=== PATIENT | male | born 1960 | race Caucasian/White ===

== ENCOUNTER 2025-01-21 16:04 | Inpatient (IN) ==
[2025-01-21] MEDS: SODIUM CHLORIDE 0.9% 1,000 ML IV SCH ×2 (17:34→22:54)
[2025-01-21 17:51] LABS: Hematocrit (blood only) 45.4 % (42.0-52.0); Hemoglobin 15.9 g/dl (14.0-18.0); Mean Corpuscular Hemoglobin 34.4 pg (25.0-34.0); Mean Corpuscular Volume 98.3 fL (80.0-100.0); Platelet Count 283 K/uL (130-400); RDW Standard Deviation 47.2 fL (36.4-46.3); Red Blood Count 4.62 M/uL (4.70-6.10); White Blood Count 10.71 K/ul (4.8-10.8)
[2025-01-21 18:03] LABS: Appearance Urine Clear (Clear); Epithelial Cell Urine Auto 0-2 /hpf (0-2); Glucose Urine UA Negative (Negative); WBC Urine Automated 0-5 /hpf (0-5)
[2025-01-21 18:10] LABS: Immature Granulocytes # (auto) 0.10 K/uL (0.01-0.20); Immature Granulocytes % (auto) 0.9 %
[2025-01-21 18:11] LABS: Alanine Aminotransferase 41.0 U/L (7-52); Alkaline Phosphatase 100.0 U/L (34-104); Anion Gap 13.0 (3-11); Bilirubin,Total 0.7 mg/dl (0.2-1.0); Blood Urea Nitrogen 48.0 mg/dl (6-23); Calcium 9.1 mg/dl (8.6-10.3); Carbon Dioxide 14.0 mmol/L (21-32); Chloride 100.0 mmol/L (98-107); Creatinine Clr Calc Pharmacy 42.0 ml/min; Glucose 91.0 mg/dl (70-99(Fasting)); Magnesium 2.9 mg/dl (1.7-2.4); Potassium 5.9 mmol/L (3.5-5.1); Sodium 127.0 mmol/L (136-145); Total Protein 8.0 gm/dl (6.0-8.3)
[2025-01-21 18:14] LABS: Bacteria Urine Automated 1+ (None Seen)
[2025-01-21] MEDS ORDERED: VANCOMYCIN CONSULT ACTIVE PRN (18:28)
--- NOTE | 2025-01-21 18:37 | Emergency Department Note ---
Impression & Plan Complicated UTI (urinary tract infection), Failure to thrive in adult, Sepsis, Wound of foot ED Provider Note NAME: SANDHYA MCCAIN AGE: 64 SEX: M : 1960 ARRIVES VIA: Ambulance INFORMANT: Patient, ED PROVIDER(S): Quang Singh MD CHIEF COMPLAINT: Failure to thrive HPI: This is a 64-year-old male presenting for failure to thrive. Patient was found after EMS was called for a lift assist. Patient found down on the ground currently being in a broken down RV. Patient has no heat, water to this area. Reportedly EMS attempted to help the patient up however they noted maggots coming from his feet bilaterally. He is malodorous. He reports he drinks alcohol, beer. Has been a few days since he drank. States he is getting weaker over the last few days. Upon arrival here, patient has jeans on that are in his heart as would. Upon attempting to remove socks, patient's skin sloughs. ROS: See above HPI for pertinent positives & negatives. A total of 10 systems reviewed and were otherwise negative. PAST MEDICAL HISTORY: See Below PAST SURGICAL HISTORY: See Below FAMILY HISTORY: See Below SOCIAL HISTORY: See Below HOME MEDICATIONS: See Below ALLERGIES: See Below VITALS: See Below PHYSICAL EXAMINATION: General: Disheveled, malodorous, tremulous Head: Normocephalic and atraumatic Eyes: Normal inspection, extraocular muscles intact Ear, nose, throat: Normal external exam Neck: Normal range of motion Respiratory: lungs clear to auscultation bilaterally Cardiovascular: Regular rate/rhythm, no murmur GI: soft, nontender, no guarding or rebound Extremities: Severe erythema and bilateral lower extremity wounds, right great toe necrotic, left second toe necrotic Neuro: The patient awake and alert, appropriately conversive, no focal deficits, symmetric faces Skin: Warm, dry, and intact MEDICAL DECISION MAKING: This is 64-year-old male presents for failure to thrive. Patient had clothing removed, water poured over his socks to remove without injury to feet. He has significant erythema/weeping to the bilateral feet. He has a necrotic right first toe and left second toe - blood work is fairly abnormal with significant dehydration, hyponatremia, hyperkalemia, creatinine to 1.77. BUN 48. No leukocytosis no anemia noted however. -Troponin elevated 22.1 lactic acid elevated 3.4 - Patient will get fluid resuscitation and empiric vancomycin for possible sepsis -Chest Xray independently interpreted by me showing no pneumothorax, focal opacity, or pleural effusions. -X-rays of the bilateral feet ordered, no obese fractures noted or osteomyelitis - ECG independently interpreted by me with normal sinus rhythm, rate of 97, normal OR, normal QRS, normal QTc, no ST segment elevations consistent with STEMI criteria - Ordered patient appears significantly unwell, significant wounds, disheveled, and need of inpatient admission - Patient care discussed Dr. Warren for admission Differential diagnosis: Sepsis, osteomyelitis, Independent History obtained from: EMS Diagnostics interpreted by me: ECG: See above Cardiac Monitoring: An order was placed for continuous cardiac monitoring. The monitor shows a rate of 102 with sinus rhythm. Past Med/Surg History Problem List (Updated 01/21/25 @ 20:11 by Quang Singh MD) Complicated UTI (urinary tract infection) (Acute) Hyponatremia TATA (acute kidney injury) Failure to thrive in adult (Acute) Sepsis (Acute) Wound of foot (Acute) Social History Smoking Status: Current every day smoker Tobacco Type: Cigars Preferred Language: Zimbabwean Feels Safe at Home: Yes Allergies Allergies Allergy/AdvReac Type Severity Reaction Status Date / Time No Known Allergies Allergy Mild Verified 06/18/07 23:57 Home Meds Home Medications Medication Instructions Recorded Confirmed No Known Home Medications 01/21/25 01/21/25 Results & Data (ED) Vital Signs Vital Signs - 24 hr 01/21/25 16:20 01/21/25 16:21 01/21/25 16:21 Temperature 36.6 C Temperature Source Oral Pulse Rate 110 H 111 H Pulse Rate [Apical] 111 H Pulse Rate from SpO2 Sensor Respiratory Rate 22 22 Respiratory Effort / Characteristics Non-Labored Spontaneous Non-Labored Spontaneous Respiratory Depth Normal Normal Respiratory Pattern Regular Regular Blood Pressure 144/93 H Blood Pressure [Right Arm] 144/93 H Blood Pressure Mean 110 Blood Pressure Mean [Right Arm] 110 Blood Pressure Position Lying Blood Pressure Position [Right Arm] Lying Pulse Oximetry 99 99 Oxygen Delivery Method Room Air Room Air Sepsis Recent Fever Within 48 Hours No Sepsis New/Unexplained Change in Mental Status No Sepsis Action Taken by Nursing Physician Notified 01/21/25 16:33 01/21/25 16:51 01/21/25 17:00 Temperature Temperature Source Pulse Rate 103 H Pulse Rate [Apical] Pulse Rate from SpO2 Sensor 114 H Respiratory Rate 25 H 38 H Respiratory Effort / Characteristics Respiratory Depth Respiratory Pattern Blood Pressure 158/100 H Blood Pressure [Right Arm] Blood Pressure Mean 126 Blood Pressure Mean [Right Arm] Blood Pressure Position Blood Pressure Position [Right Arm] Pulse Oximetry 98 Oxygen Delivery Method Room Air Sepsis Recent Fever Within 48 Hours Sepsis New/Unexplained Change in Mental Status Sepsis Action Taken by Nursing 01/21/25 17:00 01/21/25 17:18 01/21/25 17:30 Temperature Temperature Source Pulse Rate 107 H Pulse Rate [Apical] Pulse Rate from SpO2 Sensor Respiratory Rate 41 H 33 H Respiratory Effort / Characteristics Respiratory Depth Respiratory Pattern Blood Pressure 158/100 H Blood Pressure [Right Arm] Blood Pressure Mean 126 Blood Pressure Mean [Right Arm] Blood Pressure Position Blood Pressure Position [Right Arm] Pulse Oximetry Oxygen Delivery Method Sepsis Recent Fever Within 48 Hours Sepsis New/Unexplained Change in Mental Status Sepsis Action Taken by Nursing 01/21/25 17:39 01/21/25 18:00 01/21/25 18:00 Temperature Temperature Source Pulse Rate 102 H Pulse Rate [Apical] Pulse Rate from SpO2 Sensor Respiratory Rate 26 H Respiratory Effort / Characteristics Respiratory Depth Respiratory Pattern Blood Pressure 158/101 H Blood Pressure [Right Arm] Blood Pressure Mean 131 Blood Pressure Mean [Right Arm] Blood Pressure Position Blood Pressure Position [Right Arm] Pulse Oximetry 96 Oxygen Delivery Method Room Air Room Air Sepsis Recent Fever Within 48 Hours Sepsis New/Unexplained Change in Mental Status Sepsis Action Taken by Nursing Laboratory Data 01/21/25 17:32 01/21/25 17:32 Lab Results 01/21/25 01/21/25 Range/Units 17:32 19:29 WBC 10.71 (4.8-10.8) K/ul RBC 4.62 L (4.70-6.10) M/uL Hgb 15.9 (14.0-18.0) g/dl Hct 45.4 (42.0-52.0) % MCV 98.3 (80.0-100.0) fL MCH 34.4 H (25.0-34.0) pg MCHC 35.0 (32.0-36.0) g/dL RDW Std Deviation 47.2 H (36.4-46.3) fL RDW Coeff of Elias 13.2 (11.5-14.5) % Plt Count 283 (130-400) K/uL MPV 9.4 (9.4-12.4) fL Immature Gran % (Auto) 0.9 % Neut % (Auto) 75.0 % Lymph % (Auto) 7.8 % Johnson % (Auto) 15.3 % Eos % (Auto) 0.2 % Baso % (Auto) 0.8 % Neut # (Auto) 8.02 H (1.40-6.50) K/uL Lymph # (Auto) 0.84 L (1.20-3.40) K/uL Johnson # (Auto) 1.64 H (0.11-0.59) K/uL Eos # (Auto) 0.02 (0.00-0.50) K/uL Baso # (Auto) 0.09 (0.00-0.20) K/uL Immature Gran # (Auto) 0.10 (0.01-0.20) K/uL Sodium 127 L (136-145) mmol/L Potassium 5.9 H (3.5-5.1) mmol/L Chloride 100 (98-107) mmol/L Carbon Dioxide 14 L (21-32) mmol/L Anion Gap 13 H (3-11) BUN 48 H (6-23) mg/dl Creatinine 1.77 H (0.6-1.4) mg/dl Est Cr Clr Drug Dosing 42.0 ml/min eGFR 41.84 BUN/Creatinine Ratio 27.1 H (10-20) Glucose 91 (70-99(Fasting)) mg/dl Lactate 3.4 H* 3.4 H* (0.4-2.0) mmol/L Calcium 9.1 (8.6-10.3) mg/dl Magnesium 2.9 H (1.7-2.4) mg/dl Total Bilirubin 0.7 (0.2-1.0) mg/dl Direct Bilirubin 0.1 (0-0.2) mg/dl AST 104 H (13-39) U/L ALT 41 (7-52) U/L Alkaline Phosphatase 100 (34-104) U/L Troponin I High Sens 23.1 H (0-20) pg/ml Total Protein 8.0 (6.0-8.3) gm/dl Albumin 2.8 L (3.4-5.0) gm/dl Procalcitonin 2.32 H (0-0.5) ng/ml Urine Color [place] Urine Appearance Clear (Clear) Urine pH 5.0 (4.5-7.5) Ur Specific [place] 1.024 (1.000-1.030) Urine Protein 1+ H (Negative) Urine Glucose (UA) Negative (Negative) Urine Ketones Trace H (Negative) Urine Blood 2+ H (Negative) Urine Nitrite Positive A (Negative) Urine Bilirubin 1+ H (Negative) Urine Urobilinogen Negative (Negative) Ur Leukocyte Esterase Trace H (Negative) Urine WBC (Auto) 0-5 (0-5) /hpf Urine RBC (Auto) 3-5 H (0-2) /hpf U Hyaline Cast (Auto) 11-20 H (0-2) /lpf U Epithel Cells (Auto) 0-2 (0-2) /hpf Urine Bacteria (Auto) 1+ H (None Seen) Urine Comment Administered Medications Vancomycin HCl 1,750 mg/ (Sodium Chloride) 535 mls @ 200 mls/hr IV NOW ONE Stop: 01/21/25 21:08 Last Admin: 01/21/25 19:15 Dose: 200 mls/hr Documented By: PAG Discontinued Medications Sodium Chloride (Nss) 1,000 mls @ 999 mls/hr IV .Q1H1M MATTHEW Stop: 01/21/25 18:00 Last Admin: 01/21/25 17:34 Dose: 999 mls/hr Documented By: DAXA Sodium Chloride (Nss) 1,000 mls @ 999 mls/hr IV .Q1H1M ONE Stop: 01/21/25 19:15 Last Admin: 01/21/25 18:39 Dose: 999 mls/hr Documented By: DAXA Discharge Plan Visit Data Chief Complaint: Illness Stated Complaint: WEAKNESS, DRAINAGE TO FEET ED Provider: Quang Singh Discharge Problem: Complicated UTI (urinary tract infection), Failure to thrive in adult, Sepsis, Wound of foot Patient Disposition: Admitted As Inpatient Condition: Serious Forms Stand Alone Forms: My [facility] eeGeo Prescriptions Prescriptions: No Action No Known Home Medications Referrals Referrals: PCP,NO [Primary Care Provider] -
[2025-01-21] MEDS: SODIUM CHLORIDE 0.9% 1,000 ML IV ONE (18:39)
[2025-01-21] MEDS: VANCOMYCIN HCL 1,750 MG in SODIUM CHLORIDE 0.9% 500 ML IV ONE (19:15)
--- NOTE | 2025-01-21 19:17 | History & Physical Report ---
Date of Service January 21, 2025 Assessment & Plan (1) Sepsis: (2) Wound of foot: (3) Failure to thrive in adult: (4) TATA (acute kidney injury): (5) Hyponatremia: (6) Complicated UTI (urinary tract infection): Plan 64 yo male with unknown past medical history (in these records and [facility]) presenting after being found down for a lift assist, now being admitted with sepsis from bilateral foot wounds amongst other issues. #Bilateral Foot Wounds #Maggot Infestation #Sepsis -patient has burn like bilateral foot wounds with significant maggot infestation -tachycardia, tachypnea fit SIRS criteria with a source, elevated lactic acid as well -has prior wound culture in [facility] records (1 of only a few labs/records avaliable) that grew MRSA -other sources for sepsis would complicated UTI given UA, chest xray and further workup pending -personal review of chest xray before read reveals possible RLL infiltrate with enlarged hilar lymphadenopathy Plan: -NSS maintenance fluids through morning given sepsis and dehydration, low Na likely secondary volume depletion -ortho consult, appreciate recs (consult placed) -f/u xr chest, feet bilaterally -requires full body scrub and shower in ED before admission to inpatient service -f/u blood cultures -vancomycin/zosyn for empiric coverage for now -plastic surgery consult, appreciate recs (order placed) -wound care consult, appreciate recs (order placed) -trend lactic acid #Metabolic Encephalopathy #Wernickes Encephalopathy -likely 2/2 alcohol use, malnutrition, sepsis -nystagmus, confusion on exam, tremors, unable to examine ataxia Plan: -start high dose thiamine IV and PO, folic acid IV and PO -limit anticholinergics -maintenance fluids -crook operator consult, appreciate recs -CT head w/o contrast ordered #Type 2 PR #Inferior T Wave Inversions -noted by slightly elevated HS troponin -likely 2/2 sepsis -ECG with T wave inversions in inferior leads, personally reviewed Plan: -trend troponin -echo ordered give inferior T wave inversions -check BNP #Elevated AST/ALT Ratio #Alcohol Use -suggestive of active alcohol use -patient states he has not drank alcohol in a few days Plan: -check drug and alcohol levels -AWSS monitoring for alcohol withdrawal with prn ativan, given unclear if withdrawing or not -check ethylene glycol given low bicarb -check VBG -check Hep C, HIV #TATA #Metabolic Acidosis w/ Secondary Metabolic Alkalosis -unclear if TATA or CKD or TATA on CKD -will treat as TATA for now -would assume some CKD given protein and blood on UA Plan: -check bladder ultrasound to r/o obstruction -recheck BMP s/p fluids -start PO bicarbonate given low bicarb on BMP and TATA #Hypovolemic Hyponatremia -unclear type of hyponatremia at this time -patient dry on examination, mucus membranes very dry Plan: -check serum osmoles, urine osmoles, urine sodium -continue NSS resuscitation #Hyperkalemia -slightly peaked T waves on ECG Plan: -give lokelma -fluids -recheck BMP #Housing Insecurity -concern for neglect, no running water or electricity -maggots all over body, worst on feet Plan: -will need discussion with case management -PT/OT ordered I spent a total of 90 minutes in direct patient care, including [id number] time with the patient and/or family, reviewing medical records, ordering and reviewing diagnostic tests, and coordinating care with other healthcare providers. This time includes: history taking, physical examination, medical decision making, counseling, ECG interpretation, imaging interpretation, lab interpretation, orders, and education, excluding time spent in the performance of separately billed services. History of Present Illness Chief Complaint: -found down Primary Care Provider: NO PCP 64 yo male with unknown past medical history (in these records and [facility] records) presenting after being found down for a lift assist. No admissions to the hospital at [facility] or in the [facility]. Per EMS, called for lift assist, found to have maggots crawling out of feet, brought to ED for workup. In ED, given fluids, vancomycin for abx coverage, bilateral feet were cleaned, maggots found throughout feet and legs bilaterally. Admitted to medicine for further workup. Patient seen and examined at bedside. Patient is very poor historian and only gives limited history. 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 States he drinks alcohol but denies any use the past few days. States he has no symptoms, no pain at this time. Denies nausea, vomiting, diarrhea, pain, SOB, chest pain, other symptoms. States feet have only been like this for the past week. Has no running water or electricity in his trailer. Smokes tobacco when available, drinks alcohol when available, denies drug use, full code. Allergies Allergy/AdvReac Type Severity Reaction Status Date / Time No Known Allergies Allergy Mild Verified 06/18/07 23:57 Home Medications Medication Instructions Recorded Confirmed Type No Known Home Medications 01/21/25 01/21/25 History Past Med/Surg History Problem List (Updated 01/21/25 @ 20:11 by Quang Singh MD) Complicated UTI (urinary tract infection) (Acute) Hyponatremia TATA (acute kidney injury) Failure to thrive in adult (Acute) Sepsis (Acute) Wound of foot (Acute) Social History Smoking Status: Current every day smoker Tobacco Type: Cigars Preferred Language: Sinhala Feels Safe at Home: Yes Review of Systems Review of Systems: -negative unless listed above Physical Exam Physical Exam: Gen: A&O 3, confused, NAD HEENT: NCAT, EOMI, not icteric. External ears normal. No rhinorrhea. Dry mucous membranes. nystagmus noted Neck: Supple, full range of motion, no observable masses, No meningeal sign. Lungs: No Respiratory distress. CV: tachycardic, regular rhythm, no edema. Abdomen: Soft, nondistended, No rebound tenderness. MSK: burn like injuries in bilateral lower feet, covered in maggots, cleaned off some by this provider Skin: erythema in bilateral lower feet, appear raw Neuro: bilateral tremors noted Psych: very flat Results & Data Results & Data Vital Signs (Past 12 Hours) Vital Signs Temp Pulse Pulse Resp BP BP Pulse Ox 01/21/25 18:00 158/101 H 01/21/25 18:00 102 H 26 H 96 01/21/25 17:39 01/21/25 17:30 107 H 33 H 01/21/25 17:18 41 H 01/21/25 17:00 158/100 H 01/21/25 17:00 158/100 H 01/21/25 16:51 103 H 38 H 01/21/25 16:33 25 H 98 01/21/25 16:21 111 H 22 144/93 H 99 01/21/25 16:21 36.6 C 111 H 22 144/93 H 99 01/21/25 16:20 110 H O2 Del Method 01/21/25 18:00 01/21/25 18:00 Room Air 01/21/25 17:39 Room Air 01/21/25 17:30 01/21/25 17:18 01/21/25 17:00 01/21/25 17:00 01/21/25 16:51 01/21/25 16:33 Room Air 01/21/25 16:21 Room Air 01/21/25 16:21 Room Air 01/21/25 16:20 Laboratory Results -personally reviewed, UA strongly suggestive of UTI, elevated procal Medications Administered Vancomycin HCl 1,750 mg/ (Sodium Chloride) 535 mls @ 200 mls/hr IV NOW ONE Stop: 01/21/25 21:08 Last Admin: 01/21/25 19:15 Dose: 200 mls/hr Documented By: PAG Code Status & VTE Plan VTE Prophylaxis Plan VTE Prophylaxis will be ordered: Yes
[2025-01-21] MEDS ORDERED: Ativan IV Alcohol Withdrawal--Active Protocol IV PRN (19:54)
[2025-01-21] MEDS ORDERED: Ativan PO Alcohol Withdrawal--Active Protocol PO PRN (19:54)
[2025-01-21] MEDS ORDERED: LORazepam 1 MG TAB PO PRN ×3 (19:54)
[2025-01-21] MEDS ORDERED: LORazepam 2 MG/1 ML VIAL--Active Protocol IV PRN ×3 (20:15)
--- NOTE | 2025-01-21 20:30 | XRay Report ---
EXAM: XR foot RT 2V CLINICAL HISTORY: osteomyelitis TECHNIQUE: X-ray images of the right foot were obtained in lateral projections. COMPARISON: No prior studies available for comparison. FINDINGS: Bone Structure: Bone structure is normal and aligned. No evidence of fracture or dislocation. No osseous lesions or abnormalities identified. Plantar calcaneal spur Enthesophyte noted at the site of Achilles tendon insertion Diffuse osteopenia Joint Spaces: Joint spaces are normal. No evidence of joint effusion or subluxation. Soft Tissues: Soft tissue swelling noted at the forefoot, especially around the big toe IMPRESSION: 1. Soft tissue swelling noted at the forefoot, especially around the big toe, with no lytic lesions nor signs of osteomyelitis; however, if clinically indicated, MRI is the modality of choice for the detection of early osteomyelitis 2. Plantar calcaneal spur 3. Enthesophyte noted at the site of Achilles tendon insertion 4. Diffuse osteopenia 5. No evidence of acute fracture, dislocation Disclaimer: A subtle bone abnormality or fracture may not be readily apparent on X-rays; thus, clinical correlation and further imaging, including follow-up CT, MRI, or follow-up X-rays are advised as needed. Electronically signed by Derick Yang 01-21-2025 8:29 PM
--- NOTE | 2025-01-21 20:32 | XRay Report ---
EXAM: XR foot LT 2V CLINICAL HISTORY: osteomyletitis TECHNIQUE: X-ray images of the left foot were AP and lateral projections. COMPARISON: No prior studies available for comparison. FINDINGS: Bone Structure: Bone structure is normal and aligned. No evidence of fracture or dislocation. No osseous lesions or abnormalities identified. Plantar calcaneal spur Enthesophyte noted at site of Achilles tendon insertion Diffuse osteopenia Joint Spaces: Joint spaces are normal. No evidence of joint effusion or subluxation. Soft Tissues: Soft tissue swelling noted at the forefoot with no lytic lesions nor signs of osteomyelitis, IMPRESSION: 1. Soft tissue swelling noted at the forefoot with no lytic lesions nor signs of osteomyelitis, however if clinically indicated MRI is the modality of choice for detection of early osteomyelitis. 2. Plantar calcaneal spur. 3. Enthesophyte noted at site of Achilles tendon insertion. 4. Diffuse osteopenia. 5. No evidence of acute fracture, dislocation. Disclaimer: A subtle bone abnormality or fracture may not be readily apparent on X-rays, thus clinical correlation and further imaging including follow-up CT, MRI, or follow-up X-rays are advised as needed. Electronically signed by Derick Yang 01-21-2025 8:32 PM
--- NOTE | 2025-01-21 20:36 | XRay Report ---
EXAM: XR chest 1V portable CLINICAL HISTORY: Sepsis. TECHNIQUE: An X-ray image of the chest is obtained in AP projection. COMPARISON: No prior studies are available for comparison. FINDINGS: Pulmonary Parenchyma: Lungs are clear bilaterally. No evidence of consolidation, collapse, or focal opacities. No pulmonary nodules are identified. No evidence of pleural effusion or pleural thickening. Heart and Mediastinum: Apparent cardiomegaly with mildly congested hilar vessels No mediastinal widening or masses. No hilar or mediastinal lymphadenopathy. Bony Thorax: Bony thorax appears intact without deformities. Cortical irregularity and subtle angulation noted at the left 4th rib, suggesting old fracture. Soft Tissues: Soft tissues overlying the chest wall are unremarkable. IMPRESSION: 1. No acute cardiopulmonary abnormalities are identified. 2. Apparent cardiomegaly with mildly congested hilar vessels. Electronically signed by Derick Yang 01-21-2025 8:36 PM
--- NOTE | 2025-01-21 20:39 | Pharmacy Report ---
Pharmacy PK ABX Note - Date of Service January 21, 2025 - Assessment and Plan Assessment 64 year old M with unknown PMH presenting after being found down for a lift assist, now admitted with sepsis from bilateral foot wounds. Per H&P, limited prior records for review, however one record did indicate wound culture that grew MRSA. Pertinent microbiologic data includes: 01/21/25 urine culture pending 01/21/25 BC x 2 - pending Vancomycin * Loading dose: 1750 mg IV x 1 * Maintenance dose: 1250 mg IV every 24 hours * Regimen is predicted to achieve target AUC/BRANDON of 400-600 mg/L.hr * est. steady state AUC = 572 * Timing of vanco level to be determined Pharmacy will continue to follow and will adjust dose/frequency as necessary. Thank you. Pharmacy has transitioned to AUC monitoring for vancomycin. AUC/BRANDON is the preferred PK/PD target and is associated with decreased risk of nephrotoxicity compared to traditional trough targets.
[2025-01-21] MEDS: FOLIC ACID 1 MG in SYRINGE 9.8 ML IV STA (20:48)
[2025-01-21] MEDS: THIAMINE HCL 500 MG in SODIUM CHLORIDE 0.9% 50 ML IV STA (20:49)
[2025-01-21 21:01] LABS: Base Excess VBG -11.0 mEq/L; HCO3 VBG 15 mmol/L; Oxygen Saturation VBG < 60.0 %; PCO2 VBG 35 mmHg (38-50); PO2 VBG 26 mmHg; pH VBG 7.25 (7.36-7.41)
[2025-01-21 21:27] LABS: Alanine Aminotransferase 38.0 U/L (7-52); Albumin Globulin Ratio 0.6 (0.9-2); Alkaline Phosphatase 85.0 U/L (34-104); Anion Gap 11.0 (3-11); Bilirubin,Total 0.6 mg/dl (0.2-1.0); Blood Urea Nitrogen 46.0 mg/dl (6-23); Calcium 8.3 mg/dl (8.6-10.3); Carbon Dioxide 14.0 mmol/L (21-32); Chloride 105.0 mmol/L (98-107); Creatinine Clr Calc Pharmacy 46.1 ml/min; Globulin 4.2 gm/dl (2.5-4.0); Glucose 76.0 mg/dl (70-99(Fasting)); Potassium 5.7 mmol/L (3.5-5.1); Sodium 130.0 mmol/L (136-145); Total Protein 6.7 gm/dl (6.0-8.3)
[2025-01-21] MEDS ORDERED: POLYETHYLENE (MIRALAX) 17 GM PACK PO PRN (22:16)
[2025-01-21] MEDS: HEPARIN SOD 5,000 UNIT/0.5 ML VIAL SQ SCH (22:54)
[2025-01-21] MEDS: SODIUM BICARBONATE 650 MG TAB PO SCH (22:54)
--- NOTE | 2025-01-21 23:36 | CT Scan Report ---
Exam(s): CT HEAD Without Contrast EXAM: CT Head Without Intravenous Contrast CLINICAL HISTORY: Reason for exam: altered mental status. TECHNIQUE: Axial computed tomography images of the head/brain without intravenous contrast. CTDI is 38.55 mGy and DLP is 624.41 mGy-cm. Automated exposure control was utilized for the study. A dose lowering technique was utilized adhering to the principles of ALARA. COMPARISON: Prior head CT from August 29, 2007. FINDINGS: Brain: Unremarkable. No hemorrhage. No significant white matter disease. No edema. Ventricles: Moderate ventriculomegaly. Bones/joints: Periapical abscesses of 2 maxillary teeth. Recommend dental consult. No acute fracture. Soft tissues: Unremarkable. Sinuses: Unremarkable as visualized. No acute sinusitis. Mastoid air cells: Unremarkable as visualized. No mastoid effusion. IMPRESSION: No evidence of acute intracranial pathology. Electronically signed by: Magdalena Amaya MD 01/21/25 23:35 PM
[2025-01-21] MEDS: CALCIUM GLUCONATE 1,000 MG/60 ML BAG IV STA (23:38)
[2025-01-21] MEDS: DEXTROSE 50% 50 ML SYRINGE IV STA (23:46)
[2025-01-21] MEDS: INSULIN HUMAN REGULAR PER UNIT 5 UNITS in SYRINGE 4.95 ML IV STA (23:46)
--- NOTE | 2025-01-21 23:56 | Podiatry Consultation ---
Date of Consultation January 21, 2025 Assessment & Plan (1) Wound of foot: (2) Lymphedema: (3) Cellulitis of right foot: (4) Cellulitis of left foot: (5) Gangrene of toe of right foot: (6) Gangrene of toe of left foot: Plan Bilateral lower extremity cellulitis, lymphedema, multiple superficial wounds and early gangrene to the digits. - Order placed for noninvasive vascular studies. - Bilateral foot x-rays reviewed without signs of soft tissue emphysema or radiographic findings of osteomyelitis. - Feet are evaluated and have been well cleansed in the emergency department. No maggots identified interdigitally at time of exam. - Elevate bilateral lower extremity x 1 pillow while at rest. - Once daily dressing change with Silvadene to the toes and interdigital spaces. Antifungal barrier cream to the foot and leg followed by Kerlix and lightly applied Vishal bandage to keep dressings in place. Vishal bandage should extend from the toes to the level of the proximal calf. Will likely transition to multilayer compression wraps on Friday assuming adequate perfusion identified on noninvasive vascular studies. Will continue to monitor patient's progress closely. Will typically see rapid improvement in the overall quality of the skin of the feet and distal leg with elevation, light compression and dressing changes. Necrotic tissue to the toes will need to be monitored closely and will require long-term wound care with application of Betadine and a dry sterile dressing to all eschars once the surrounding soft tissues have stabilized. Patient okay to weight-bear as needed for short distance and transfer. Continue empiric IV antibiotics as per hospitalist team. None of the wounds of the patient's foot looks a bit deep extension to the subcutaneous tissue layer, bone tendon or joint at this time. History of Present Illness Reason for Consultation: Open wounds and cellulitis of bilateral foot and ankle. Attending Physician: Oleksandr Knox MD History of Present Illness 64-year-old male with 1 week history of increased pain and swelling to the bilateral foot. Reports he called EMS for lift assist as he was unable to bear weight on his feet due to pain. Denies any injury to the bilateral foot. Reports bilateral lower extremity edema which increases throughout the day and with feet in dependent position and resolves with elevation. Reports he lives in a trailer currently by himself she is not have running water or electricity. He was found there by EMS who noted maggots to the feet and legs primarily interdigital spaces. Denies pain to the feet at baseline but he is unable to bear weight due to discomfort with pressure. Meet sepsis criteria on admission with source infection bilateral feet versus UTI. At time of our interview patient reports he is feeling much better than he did on admission and is able to speak more clearly and in full sentences without significant confusion. Allergies Allergy/AdvReac Type Severity Reaction Status Date / Time No Known Allergies Allergy Mild Verified 06/18/07 23:57 Home Medications Medication Instructions Recorded Confirmed Type No Known Home Medications 01/21/25 01/21/25 History Patient History Social History Smoking Status: Current every day smoker Tobacco Type: Cigars Preferred Language: Fijian Feels Safe at Home: Yes Review of Systems 2 Review of Systems: Denies nausea, vomiting, fever, chills. Reports pain in the bilateral foot and ankle with weightbearing and palpation. Physical Exam 2 Physical Exam: Const: No signs of acute distress present. CV: Extremities: Posterior tibial and dorsalis pedis pulses are palpable bilateral. Skin: See lower extremity exam Neuro: Sensation intact to light touch in all areas of the foot and ankle. Psych: Mood/Affect: Mood is normal. Affect is normal. Cognition: Orientation is intact to person, place and time. Focused lower extremity musculoskeletal exam: Leg: No pain with compression of the calf muscle. Significant reduction in edema to the bilateral lower extremity since the time of admission noted. Left foot: Dry flaking skin from the distal toes to the proximal one third of the leg with multiple areas of superficial skin breakdown weeping serous fluid. Erythema extends from the distal one third of the leg to the toes. Early apparent superficial tissue necrosis to the dorsal toes most notably dorsal second toe. Right foot: Slightly more erythematous than the left with dry flaking skin multiple fissures and superficial ulcerations interdigitally weeping serous fluid. Erythema extends from the distal third of the leg to the toes. Early tissue necrosis to the hallux which seems to be developing rapidly as not seen on photos obtained on admission. Results & Data Vital Signs (Past 12 Hours) Vital Signs Temp Pulse Pulse Resp BP BP Pulse Ox 01/21/25 22:21 110 H 17 98 01/21/25 21:15 107 H 25 H 100 01/21/25 20:51 131/98 96 01/21/25 20:42 85 L 01/21/25 20:39 131/98 01/21/25 19:42 23 01/21/25 19:15 120 H 26 H 01/21/25 19:03 103 H 30 H 01/21/25 18:54 103 H 30 H 01/21/25 18:15 104 H 21 01/21/25 18:00 158/101 H 01/21/25 18:00 102 H 26 H 96 01/21/25 17:39 01/21/25 17:30 107 H 33 H 01/21/25 17:18 41 H 01/21/25 17:00 158/100 H 01/21/25 17:00 158/100 H 01/21/25 16:51 103 H 38 H 01/21/25 16:33 25 H 98 01/21/25 16:21 111 H 22 144/93 H 99 01/21/25 16:21 36.6 C 111 H 22 144/93 H 99 01/21/25 16:20 110 H O2 Del Method 01/21/25 22:21 Room Air 01/21/25 21:15 01/21/25 20:51 01/21/25 20:42 01/21/25 20:39 01/21/25 19:42 01/21/25 19:15 01/21/25 19:03 01/21/25 18:54 01/21/25 18:15 01/21/25 18:00 01/21/25 18:00 Room Air 01/21/25 17:39 Room Air 01/21/25 17:30 01/21/25 17:18 01/21/25 17:00 01/21/25 17:00 01/21/25 16:51 01/21/25 16:33 Room Air 01/21/25 16:21 Room Air 01/21/25 16:21 Room Air 01/21/25 16:20 PG Care Time/CCT Total # of Minutes Spent Total Time Spent with Patient: Total time spent is greater than 50% in coordination of care (as documented) at patient's floor/unit and/or counseling patient: Coding Level of Care Code 45104 INT INP/OBS CARE 2/55MIN Diagnoses Wound of foot S91.309A Lymphedema I89.0 Cellulitis of right foot L03.115 Cellulitis of left foot L03.116 Gangrene of toe of right foot I96 Gangrene of toe of left foot I96
[2025-01-22] MEDS: PIPERACILLIN/TAZOBACTAM 4.5 GM/100 ML BAG IV ONE (00:12)
[2025-01-22] MEDS: SODIUM ZIRCONIUM CYCLOSILICATE 10 GM PACKET PO ONE (00:12)
--- NOTE | 2025-01-22 01:12 | Ultrasound Report ---
Exam(s): US RENAL EXAM: US Retroperitoneal Limited, Renal CLINICAL HISTORY: Reason for exam: TATA. TECHNIQUE: Real-time limited ultrasound of the retroperitoneum with image documentation. COMPARISON: No relevant prior studies available. FINDINGS: Right kidney: Unremarkable. No stones. No hydronephrosis. The right kidney measures 9.6 x 4.7 x 4.8 cm 113.5 ml. Left kidney: Unremarkable. No stones. No hydronephrosis. The left kidney measures 11.5 x 5.7 x 5.8 cm 199.2 ml. Bladder: The urinary bladder is normally distended with an unremarkable appearance. Ureteral jets are visible. IMPRESSION: No acute findings in the retroperitoneum. Electronically signed by: Robin Granado MD 01/22/25 01:11 AM
[2025-01-22] MEDS: PIPERACILLIN/TAZOBACTAM 4.5 GM/100 ML BAG IV SCH (06:49)
[2025-01-22 07:30] LABS: Amphetamines+Metham, Urine Neg (Neg); MDMA (Ecstacy), Urine Neg (Neg); Marijuana, Urine Neg (Neg)
--- NOTE | 2025-01-22 08:05 | Ultrasound Report ---
EXAM: US arterial duplex LE BI CLINICAL HISTORY: Gangrenous changes to bilateral toes TECHNIQUE: Static ultrasound images with Grayscale and Doppler were submitted for review. COMPARISON: None. FINDINGS: limited examination possible due to patient positioning and open wounds. Distal calf arteries and dorsalis pedis arteries are not seen due to inability of the patient to tolerate probe pressure on the wounds. The lower limb arteries show increased peak systolic velocities with monophasic waveform in all the arteries in right limb and arteries distal to superficial femoral artery in left limb. Peak systolic velocities of various arteries are as below (cm/sec). Right: Common femoral artery - 312 SFA (prox) - 142 SFA (mid) - 168 SFA (distal) - 388 Deep femoral artery - 180 Popliteal artery - 117 Posterior tibial artery (prox/mid) - 22 Peroneal artery (prox/mid)- 96 Anterior tibial artery (prox/mid) - 109 Left Common femoral artery - 187 SFA (prox) - 139 SFA (mid) - 175 SFA (distal) - 212 Deep femoral artery - 162 Popliteal artery - 95 Posterior tibial artery (prox/mid)- 187 Peroneal artery (prox/mid)- 25 Anterior tibial artery (prox/mid) - 109 IMPRESSION: 1. Increased velocity monophasic spectral waveforms in bilateral lower limb aretries without any obvious luminal obstruction in the visualised arteries. Electronically signed by Ino Jenkins 01-22-2025 08:05 AM
[2025-01-22] MEDS: THIAMINE HCL 100 MG TAB PO SCH (08:06)
[2025-01-22] MEDS: FOLIC ACID 1 MG in SYRINGE 9.8 ML IV SCH (08:06)
[2025-01-22 09:18] LABS: Hematocrit (blood only) 32.8 % (42.0-52.0); Hemoglobin 11.5 g/dl (14.0-18.0); Immature Granulocytes # (auto) 0.06 K/uL (0.01-0.20); Immature Granulocytes % (auto) 0.8 %; Mean Corpuscular Hemoglobin 34.4 pg (25.0-34.0); Mean Corpuscular Volume 98.2 fL (80.0-100.0); Platelet Count 207 K/uL (130-400); RDW Standard Deviation 46.7 fL (36.4-46.3); Red Blood Count 3.34 M/uL (4.70-6.10); Toxic Granulation 1+; White Blood Count 7.44 K/ul (4.8-10.8)
[2025-01-22 09:26] LABS: Alanine Aminotransferase 42.0 U/L (7-52); Albumin Globulin Ratio 0.7 (0.9-2); Alkaline Phosphatase 70.0 U/L (34-104); Anion Gap 7.0 (3-11); Bilirubin,Total 0.6 mg/dl (0.2-1.0); Blood Urea Nitrogen 41.0 mg/dl (6-23); Calcium 7.7 mg/dl (8.6-10.3); Carbon Dioxide 15.0 mmol/L (21-32); Chloride 103.0 mmol/L (98-107); Creatinine Clr Calc Pharmacy 54.7 ml/min; Globulin 3.2 gm/dl (2.5-4.0); Glucose 79.0 mg/dl (70-99(Fasting)); Magnesium 2.4 mg/dl (1.7-2.4); Potassium 4.6 mmol/L (3.5-5.1); Sodium 125.0 mmol/L (136-145); Total Protein 5.4 gm/dl (6.0-8.3)
[2025-01-22] MEDS ORDERED: VANCOMYCIN HCL 1,250 MG in SODIUM CHLORIDE 0.9% 250 ML IV SCH (10:00)
[2025-01-22] MEDS: VANCOMYCIN HCL 1,500 MG in SODIUM CHLORIDE 0.9% 500 ML IV SCH (10:59)
--- NOTE | 2025-01-22 12:11 | Electrocardiogram Report ---
Test Reason : Blood Pressure : */* mmHG Vent. Rate : 97 BPM Atrial Rate : 97 BPM P-R Int : 154 ms QRS Dur : 100 ms QT Int : 376 ms P-R-T Axes : -8 -6 -11 degrees QTcB Int : 477 ms Normal sinus rhythm Normal ECG When compared with ECG of 08-Oct-2005 16:21, T wave inversion more evident in Inferior leads QT has lengthened Confirmed by Robi Fisher ([id number]) on 01/22/2025 12:11:11 PM Referred By: REFERRED SELF Confirmed By: Robi Fisher
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
[2025-01-22] MEDS: SODIUM CHLORIDE 0.9% 1,000 ML IV SCH (14:30)
[2025-01-23 07:26] LABS: Hematocrit (blood only) 31.9 % (42.0-52.0); Hemoglobin 11.3 g/dl (14.0-18.0); Mean Corpuscular Hemoglobin 34.5 pg (25.0-34.0); Mean Corpuscular Volume 97.3 fL (80.0-100.0); Platelet Count 210 K/uL (130-400); RDW Standard Deviation 46.2 fL (36.4-46.3); Red Blood Count 3.28 M/uL (4.70-6.10); White Blood Count 5.35 K/ul (4.8-10.8)
[2025-01-23 07:45] LABS: Alanine Aminotransferase 65.0 U/L (7-52); Albumin Globulin Ratio 0.7 (0.9-2); Alkaline Phosphatase 87.0 U/L (34-104); Anion Gap 7.0 (3-11); Bilirubin,Total 0.6 mg/dl (0.2-1.0); Blood Urea Nitrogen 27.0 mg/dl (6-23); Calcium 7.7 mg/dl (8.6-10.3); Carbon Dioxide 19.0 mmol/L (21-32); Chloride 104.0 mmol/L (98-107); Creatinine Clr Calc Pharmacy 70.8 ml/min; Globulin 3.5 gm/dl (2.5-4.0); Glucose 112.0 mg/dl (70-99(Fasting)); Magnesium 2.2 mg/dl (1.7-2.4); Potassium 3.6 mmol/L (3.5-5.1); Sodium 130.0 mmol/L (136-145); Total Protein 5.8 gm/dl (6.0-8.3)
[2025-01-23 07:46] LABS: Immature Granulocytes # (auto) 0.08 K/uL (0.01-0.20); Immature Granulocytes % (auto) 1.5 %; Polychromasia 1+; Toxic Granulation 1+
[2025-01-23] MEDS ORDERED: POTASSIUM PHOS 3 MMOL/1 ML INFUSION IV STA (07:47)
[2025-01-23] MEDS: POTASSIUM PHOSPHATE 15 MMOL in SODIUM CHLORIDE 0.9% 250 ML IV ONE (08:45)
[2025-01-23] MEDS: SILVER SULFADIAZINE 1% CR 50 GM JAR/TUBE EXT SCH (08:46)
[2025-01-23] MEDS: POTASSIUM CHLORIDE CRTAB 20 MEQ TABCR PO STA (08:46)
--- NOTE | 2025-01-23 12:39 | Hospitalist Progress Note ---
Date of Service January 23, 2025 Assessment & Plan (1) Sepsis: Plan: 64 yo male with unknown past medical history (in these records and [facility] records) presenting after being found down for a lift assist, now being admitted with sepsis from bilateral foot wounds amongst other issues. #Bilateral Foot Wounds-has been seen thoracic medicine specialist Dr. Drummond as an outpatient for the last 2 to 3 years as per the patient. Will try to talk to Dr. Drummond on Friday, #Maggot Infestation #Sepsis Presented with burn like bilateral foot wounds with significant maggot infestation Noted to have tachycardia, tachypnea fit SIRS criteria with a source, elevated lactic acid as well Has prior wound culture in [facility] records (1 of only a few labs/records avaliable) that grew MRSA UA suggestive of infection and has been sent for culture and sensitivity and blood cultures have been taken Has been started with intravenous Zosyn and vancomycin Appreciate Ortho and thoracic medicine specialist input and recommendation Wound care has been consulted Washout of the wounds with appropriate solutions have been prescribed P as the provider is out of town lastic surgery consultation will be canceled for now as the provider is out of town Awaiting wound care nurse evaluation Clinically better and denies any significant symptoms except minimal pain Continue washout of the wounds as advised with chlorhexidine and water twice daily (2) Wound of foot: Plan: As above Appreciate thoracic medicine specialist input and recommendation (3) Failure to thrive in adult: (4) TATA (acute kidney injury): Plan: #TATA #Metabolic Acidosis w/ Secondary Metabolic Alkalosis Increasing BUN and creatinine likely secondary to dehydration Potassium was elevated at 5.7 this morning likely due to increasing creatinine Received intravenous fluid and also bicarbonate orally Kidney function has been normalized though sodium still remains low at 125 which is likely secondary to dehydration Kidney function remains stable (5) Hyponatremia: Plan: #Hypovolemic Hyponatremia -unclear type of hyponatremia at this time -patient dry on examination, mucus membranes very dry Plan: -check serum osmoles, urine osmoles, urine sodium -continue NSS resuscitation - Will monitor PRP-sodium level has gone up to 130 (6) Complicated UTI (urinary tract infection): Plan: UA suggestive of infection and culture has been sent Urine culture has been negative (7) Acute metabolic encephalopathy: Plan: #Metabolic Encephalopathy # Doubt Wernickes Encephalopathy Likely 2/2 alcohol use, malnutrition, sepsis Nystagmus, confusion on exam, tremors, unable to examine ataxia Started on thiamine and folic acid Will observe for any withdrawal symptoms Rcp consult, appreciate recs CT head w/o contrast ordered Clinically better no acute symptoms of withdrawal Plan Other significant medical condition as mentioned below: T wave inversion yes Eligibility minus #Type 2 MS #Inferior T Wave Inversions -noted by slightly elevated HS troponin -likely 2/2 sepsis -ECG with T wave inversions in inferior leads, personally reviewed No evidence of ACS Echo of the heart showed LV wall motion normal, LV systolic function normal, EF was 55 to 60%, grade 1 diastolic dysfunction and there is no significant valvular disease #Elevated AST/ALT Ratio #Alcohol Use -suggestive of active alcohol use -patient states he has not drank alcohol in a few days Plan: -check drug and alcohol levels -AWSS monitoring for alcohol withdrawal with prn ativan, given unclear if withdrawing or not -check ethylene glycol given low bicarb -check VBG -check Hep C, HIV show-hep C has been negative and HIV has been negative #Hyperkalemia -slightly peaked T waves on ECG Plan: -give lokelma -fluids -recheck BMP #Housing Insecurity -concern for neglect, no running water or electricity -maggots all over body, worst on feet Plan: -will need discussion with case management -PT/OT ordered Admission and Anticipated Discharge Date Admission Date: January 21, 2025 Subjective 01/22/2025 The patient was seen and examined in medical telemetry unit He complains today of bilateral feet pain and denies any other significant symptoms No fever and/or chills, no nausea and/or vomiting 01/23/2025 The patient was seen and examined in medical telemetry unit He has been stable and complains of minimal pain in the legs and feet No other significant symptoms and does not have any fever and/or chills Review of Systems Review of Systems: All systems reviewed and are unremarkable except as noted below Physical Exam Physical Exam: Lying in bed without any acute distress Constitutional: well developed, well nourished, + ill appearing and + obese Eyes: PERRL, conjunctivae normal, anicteric sclerae ENMT: external ear and nose normal, oropharynx normal Neck: trachea midline, no thyromegaly Respiratory: no respiratory distress Auscultation: lungs clear to auscultation bilaterally Cardiovascular: Rate/Rhythm: regular rate and regular rhythm; not tachycardic Heart Sounds: normal S1 and normal S2; no murmur Extremities: + edema ( lower part of the leg and both the feet are bandaged and the toes looking ) Gastrointestinal (Abdomen): Inspection/Auscultation: normal bowel sounds; abdomen not distended Percussion/Palpation: abdomen soft; abdomen nontender Musculoskeletal: No acute arthritis involving any of the joint. He has pain involving both the feet due to wounds with maggot Neurologic: normal touch/pain/proprioception and moves all extremities; no focal motor deficits Lymphatic: no cervical or axillary lymphadenopathy Results & Data Results & Data Vital Signs (Past 12 Hours) Vital Signs Temp Pulse Resp BP Pulse Ox O2 Del Method 01/23/25 12:10 36.5 C 81 20 133/74 96 Room Air 01/23/25 08:20 36.6 C 73 20 111/66 99 Room Air 01/23/25 03:43 36.6 C 92 H 20 132/73 97 Room Air Laboratory Results Short CBC 01/23/25 Range/Units 06:31 WBC 5.35 (4.8-10.8) K/ul Hgb 11.3 L (14.0-18.0) g/dl Hct 31.9 L (42.0-52.0) % Plt Count 210 (130-400) K/uL BMP 01/23/25 06:31 Sodium 130 L Potassium 3.6 D Chloride 104 Carbon Dioxide 19 L BUN 27 H Creatinine 1.05 D Glucose 112 H Calcium 7.7 L Liver Function 01/23/25 Range/Units 06:31 Total Bilirubin 0.6 (0.2-1.0) mg/dl AST 143 H (13-39) U/L ALT 65 H (7-52) U/L Alkaline Phosphatase 87 (34-104) U/L Albumin 2.3 L (3.4-5.0) gm/dl Medications Administered Current Inpatient Medications Acetaminophen (Acetaminophen 325 Mg Tab) 650 mg PO Q4H PRN PRN Reason: pain/fever Stop: 02/20/25 22:15 Heparin Sodium (Porcine) (Heparin Sod 5,000 Unit/0.5 Ml Vial) 5,000 units SQ Q8 MATTHEW Stop: 02/20/25 22:15 Last Admin: 01/23/25 05:57 Dose: 5,000 units Piperacillin Sod/Tazobactam Sod (Zosyn) 4.5 gm in 100 mls @ 25 mls/hr IV Q8H [facility]; Protocol Stop: 01/24/25 05:59 Last Infusion: 01/23/25 10:43 Dose: Infused Folic Acid 1 mg/ Syringe 10 mls @ 5 mls/min IV QAM [facility] Stop: 02/21/25 08:59 Last Admin: 01/23/25 08:44 Dose: 5 mls/min Vancomycin HCl 1,500 mg/ (Sodium Chloride) 530 mls @ 200 mls/hr IV Q24H [facility] Stop: 01/29/25 10:29 Last Admin: 01/23/25 12:06 Dose: 200 mls/hr Sodium Chloride (Nss) 1,000 mls @ 80 mls/hr IV .[id number] [facility] Stop: 01/24/25 03:29 Last Admin: 01/23/25 03:00 Dose: 80 mls/hr Lorazepam (Lorazepam 1 Mg Tab) 1 mg PO UD PRN; Protocol PRN Reason: EtOH Withdrawal AWSS Score 6,7 Stop: 02/20/25 19:53 Lorazepam (Lorazepam 1 Mg Tab) 3 mg PO ONCE PRN; Protocol PRN Reason: EtOH Withdrawal AWSS Score 10 & above Lorazepam (Lorazepam 1 Mg Tab) 2 mg PO UD PRN; Protocol PRN Reason: EtOH Withdrawal AWSS Score 8,9 Stop: 02/20/25 19:53 Lorazepam (Lorazepam 2 Mg/1 Ml Vial--Active Protocol) 1 mg IV UD PRN; Protocol PRN Reason: AWSS Score 6,7 Stop: 02/20/25 20:14 Lorazepam (Lorazepam 2 Mg/1 Ml Vial--Active Protocol) 2 mg IV UD PRN; Protocol PRN Reason: AWSS Score 8,9 Stop: 02/20/25 20:14 Lorazepam (Lorazepam 2 Mg/1 Ml Vial--Active Protocol) 3 mg IV ONCE PRN; Protocol PRN Reason: AWSS Score 10+ Stop: 02/20/25 20:14 Miscellaneous Information (Vancomycin Consult Active) 1 each N/A UD PRN PRN Reason: Consult Stop: 02/20/25 18:27 Ondansetron HCl (Ondansetron Inj 2 Mg/Ml 2 Ml Vial) 4 mg IV Q6H PRN PRN Reason: Nausea Stop: 02/20/25 22:15 Polyethylene Glycol (Polyethylene (Miralax) 17 Gm Pack) 17 gm PO DAILY PRN PRN Reason: Constipation Stop: 02/20/25 22:15 Silver Sulfadiazine (Silver Sulfadiazine 1% Cr 50 Gm Jar/Tube) 1 appln EXT QD@08 [facility] Stop: 02/22/25 07:59 Last Admin: 01/23/25 08:46 Dose: 1 appln Sodium Bicarbonate (Sodium Bicarbonate 650 Mg Tab) 1,300 mg PO TID [facility] Stop: 02/20/25 20:59 Last Admin: 01/23/25 10:44 Dose: 1,300 mg Thiamine HCl (Thiamine Hcl 100 Mg Tab) 100 mg PO QAM [facility] Stop: 02/21/25 08:59 Last Admin: 01/23/25 10:44 Dose: 100 mg
[2025-01-24 05:22] LABS: Hematocrit (blood only) 30.1 % (42.0-52.0); Hemoglobin 10.3 g/dl (14.0-18.0); Immature Granulocytes # (auto) 0.15 K/uL (0.01-0.20); Immature Granulocytes % (auto) 2.6 %; Mean Corpuscular Hemoglobin 33.4 pg (25.0-34.0); Mean Corpuscular Volume 97.7 fL (80.0-100.0); Platelet Count 197 K/uL (130-400); RDW Standard Deviation 46.8 fL (36.4-46.3); Red Blood Count 3.08 M/uL (4.70-6.10); White Blood Count 5.85 K/ul (4.8-10.8)
[2025-01-24 05:40] LABS: Anion Gap 6.0 (3-11); Blood Urea Nitrogen 16.0 mg/dl (6-23); Calcium 7.1 mg/dl (8.6-10.3); Carbon Dioxide 20.0 mmol/L (21-32); Chloride 107.0 mmol/L (98-107); Creatinine Clr Calc Pharmacy 76.6 ml/min; Glucose 89.0 mg/dl (70-99(Fasting)); Magnesium 1.9 mg/dl (1.7-2.4); Potassium 3.4 mmol/L (3.5-5.1); Sodium 133.0 mmol/L (136-145)
--- NOTE | 2025-01-24 08:23 | Pharmacy Report ---
Pharmacy PK ABX Note - Date of Service January 24, 2025 - Assessment and Plan Assessment 01/24: Reviewed vancomycin level, predicting subtherapeutic AUC/BRANDON likely due to improved serum creatinine, adjust regimen for better probability of goal AUC/BRANDON attainment. Continue Zosyn per Dr. Barrera. 01/21: 64 year old M with unknown PMH presenting after being found down for a lift assist, now admitted with sepsis from bilateral foot wounds. Per H&P, limited prior records for review, however one record did indicate wound culture that grew MRSA. Pertinent microbiologic data includes: 01/21/25 urine culture pending 01/21/25 BC x 2 - pending Vancomycin * Loading dose: 1750 mg IV x 1 * Maintenance dose: change to 1000 mg IV every 12 hours * Regimen is predicted to achieve target AUC/BRANDON of 400-600 mg/L.hr * est. steady state AUC = 520 * Random level ordered for 01/26/25 with AM labs Pharmacy will continue to follow and will adjust dose/frequency as necessary. Thank you. Pharmacy has transitioned to AUC monitoring for vancomycin. AUC/BRANDON is the preferred PK/PD target and is associated with decreased risk of nephrotoxicity compared to traditional trough targets.
[2025-01-24] MEDS: VANCOMYCIN HCL 1,000 MG/270 ML BAG IV SCH (10:20)
[2025-01-24] MEDS: CALCIUM GLUCONATE 1,000 MG/60 ML BAG IV STA (10:20)
[2025-01-24] MEDS: POTASSIUM CHLORIDE CRTAB 20 MEQ TABCR PO SCH (10:21)
[2025-01-24] MEDS: PIPERACILLIN/TAZOBACTAM 4.5 GM/100 ML BAG IV SCH (10:52)
--- NOTE | 2025-01-24 12:58 | Hospitalist Progress Note ---
Date of Service January 24, 2025 Assessment & Plan (1) Sepsis: Plan: 64 yo male with unknown past medical history (in these records and [facility] records) presenting after being found down for a lift assist, now being admitted with sepsis from bilateral foot wounds amongst other issues. #Bilateral Foot Wounds-has been seen child life therapist Dr. Drummond as an outpatient for the last 2 to 3 years as per the patient. Will try to talk to Dr. Drummond on Friday, #Maggot Infestation #Sepsis Presented with burn like bilateral foot wounds with significant maggot infestation Noted to have tachycardia, tachypnea fit SIRS criteria with a source, elevated lactic acid as well Has prior wound culture in [facility] records (1 of only a few labs/records avaliable) that grew MRSA UA suggestive of infection and has been sent for culture and sensitivity and blood cultures have been taken Has been started with intravenous Zosyn and vancomycin Appreciate Ortho and child life therapist input and recommendation Wound care has been consulted Washout of the wounds with appropriate solutions have been prescribed P as the provider is out of town lastic surgery consultation will be canceled for now as the provider is out of town Awaiting wound care nurse evaluation Clinically better and denies any significant symptoms except minimal pain Continue washout of the wounds as advised with chlorhexidine and water twice daily Arterial duplex was unremarkable for any significant obstruction Will continue current intravenous antibiotic and await further input from wound care and child life therapist (2) Wound of foot: Plan: As above Appreciate child life therapist input and recommendation (3) Failure to thrive in adult: (4) TATA (acute kidney injury): Plan: #TATA #Metabolic Acidosis w/ Secondary Metabolic Alkalosis Increasing BUN and creatinine likely secondary to dehydration Potassium was elevated at 5.7 this morning likely due to increasing creatinine Received intravenous fluid and also bicarbonate orally Kidney function has been normalized though sodium still remains low at 125 which is likely secondary to dehydration Kidney function remains stable-kidney function remains normal and electrolytes are unremarkable (5) Hyponatremia: Plan: #Hypovolemic Hyponatremia -unclear type of hyponatremia at this time -patient dry on examination, mucus membranes very dry Plan: -check serum osmoles, urine osmoles, urine sodium -continue NSS resuscitation - Will monitor PRP-sodium level has gone up to 130 Sodium level has gone up to 133 and electrolytes will be replaced accordingly (6) Complicated UTI (urinary tract infection): Plan: UA suggestive of infection and culture has been sent Urine culture has been negative (7) Acute metabolic encephalopathy: Plan: #Metabolic Encephalopathy # Doubt Wernickes Encephalopathy Likely 2/2 alcohol use, malnutrition, sepsis Nystagmus, confusion on exam, tremors, unable to examine ataxia Started on thiamine and folic acid Will observe for any withdrawal symptoms Franchise Sales Representative consult, appreciate recs CT head w/o contrast ordered Clinically better no acute symptoms of withdrawal Clinically much better Plan Other significant medical condition as mentioned below: T wave inversion yes Eligibility minus #Type 2 MN #Inferior T Wave Inversions -noted by slightly elevated HS troponin -likely 2/2 sepsis -ECG with T wave inversions in inferior leads, personally reviewed No evidence of ACS Echo of the heart showed LV wall motion normal, LV systolic function normal, EF was 55 to 60%, grade 1 diastolic dysfunction and there is no significant valvular disease #Elevated AST/ALT Ratio #Alcohol Use -suggestive of active alcohol use -patient states he has not drank alcohol in a few days Plan: -check drug and alcohol levels -AWSS monitoring for alcohol withdrawal with prn ativan, given unclear if withdrawing or not -check ethylene glycol given low bicarb -check VBG -check Hep C, HIV show-hep C has been negative and HIV has been negative #Hyperkalemia-corrected -slightly peaked T waves on ECG Plan: -give lokelma -fluids -recheck BMP #Housing Insecurity -concern for neglect, no running water or electricity -maggots all over body, worst on feet Plan: -will need discussion with case management -PT/OT ordered Admission and Anticipated Discharge Date Admission Date: January 21, 2025 Subjective 01/22/2025 The patient was seen and examined in medical telemetry unit He complains today of bilateral feet pain and denies any other significant symptoms No fever and/or chills, no nausea and/or vomiting 01/23/2025 The patient was seen and examined in medical telemetry unit He has been stable and complains of minimal pain in the legs and feet No other significant symptoms and does not have any fever and/or chills 01/24/2025 The patient was seen and examined in medical telemetry unit He has been much better today and looks brighter Still has some pain in his lower legs but no fever and or chills Denies any other significant symptoms Review of Systems Review of Systems: All systems reviewed and are unremarkable except as noted below Physical Exam Physical Exam: Lying in bed without any acute distress Constitutional: well developed, well nourished, + ill appearing and + obese Eyes: PERRL, conjunctivae normal, anicteric sclerae ENMT: external ear and nose normal, oropharynx normal Neck: trachea midline, no thyromegaly Respiratory: no respiratory distress Auscultation: lungs clear to auscultation bilaterally Cardiovascular: Rate/Rhythm: regular rate and regular rhythm; not tachycardic Heart Sounds: normal S1 and normal S2; no murmur Extremities: + edema ( lower part of the leg and both the feet are bandaged and the toes looking ) Gastrointestinal (Abdomen): Inspection/Auscultation: normal bowel sounds; abdomen not distended Percussion/Palpation: abdomen soft; abdomen nontender Skin: Awaiting wound care evaluation and management Neurologic: normal touch/pain/proprioception and moves all extremities; no focal motor deficits Lymphatic: no cervical or axillary lymphadenopathy Results & Data Results & Data Vital Signs (Past 12 Hours) Vital Signs Temp Pulse Resp BP Pulse Ox O2 Del Method 01/24/25 11:28 36.5 C 88 20 123/62 96 Room Air 01/24/25 07:27 36.7 C 71 16 126/55 L 98 Room Air 01/24/25 03:50 36.8 C 81 20 123/72 96 Room Air Laboratory Results Short CBC 01/24/25 Range/Units 04:14 WBC 5.85 (4.8-10.8) K/ul Hgb 10.3 L (14.0-18.0) g/dl Hct 30.1 L (42.0-52.0) % Plt Count 197 (130-400) K/uL BMP 01/24/25 04:14 Sodium 133 L Potassium 3.4 L Chloride 107 Carbon Dioxide 20 L BUN 16 Creatinine 0.97 Glucose 89 Calcium 7.1 L Medications Administered Current Inpatient Medications Acetaminophen (Acetaminophen 325 Mg Tab) 650 mg PO Q4H PRN PRN Reason: pain/fever Stop: 02/20/25 22:15 Heparin Sodium (Porcine) (Heparin Sod 5,000 Unit/0.5 Ml Vial) 5,000 units SQ Q8 MATTHEW Stop: 02/20/25 22:15 Last Admin: 01/24/25 06:22 Dose: 5,000 units Folic Acid 1 mg/ Syringe 10 mls @ 5 mls/min IV QAM [facility] Stop: 02/21/25 08:59 Last Admin: 01/24/25 10:20 Dose: 5 mls/min Vancomycin HCl (Vancomycin Hcl) 1,000 mg in 270 mls @ 200 mls/hr IV Q12H [facility] Stop: 01/31/25 07:59 Last Infusion: 01/24/25 11:50 Dose: Infused Piperacillin Sod/Tazobactam Sod (Zosyn) 4.5 gm in 100 mls @ 25 mls/hr IV Q8H [facility]; Protocol Stop: 01/31/25 08:59 Last Admin: 01/24/25 10:52 Dose: 25 mls/hr Lorazepam (Lorazepam 1 Mg Tab) 1 mg PO UD PRN; Protocol PRN Reason: EtOH Withdrawal AWSS Score 6,7 Stop: 02/20/25 19:53 Lorazepam (Lorazepam 1 Mg Tab) 3 mg PO ONCE PRN; Protocol PRN Reason: EtOH Withdrawal AWSS Score 10 & above Lorazepam (Lorazepam 1 Mg Tab) 2 mg PO UD PRN; Protocol PRN Reason: EtOH Withdrawal AWSS Score 8,9 Stop: 02/20/25 19:53 Lorazepam (Lorazepam 2 Mg/1 Ml Vial--Active Protocol) 1 mg IV UD PRN; Protocol PRN Reason: AWSS Score 6,7 Stop: 02/20/25 20:14 Lorazepam (Lorazepam 2 Mg/1 Ml Vial--Active Protocol) 2 mg IV UD PRN; Protocol PRN Reason: AWSS Score 8,9 Stop: 02/20/25 20:14 Lorazepam (Lorazepam 2 Mg/1 Ml Vial--Active Protocol) 3 mg IV ONCE PRN; Protocol PRN Reason: AWSS Score 10+ Stop: 02/20/25 20:14 Miscellaneous Information (Vancomycin Consult Active) 1 each N/A UD PRN PRN Reason: Consult Stop: 02/20/25 18:27 Ondansetron HCl (Ondansetron Inj 2 Mg/Ml 2 Ml Vial) 4 mg IV Q6H PRN PRN Reason: Nausea Stop: 02/20/25 22:15 Polyethylene Glycol (Polyethylene (Miralax) 17 Gm Pack) 17 gm PO DAILY PRN PRN Reason: Constipation Stop: 02/20/25 22:15 Potassium Chloride (Potassium Chloride Crtab 20 Meq Tabcr) 20 meq PO BID MATTHEW Stop: 02/23/25 08:59 Last Admin: 01/24/25 10:21 Dose: 20 meq Silver Sulfadiazine (Silver Sulfadiazine 1% Cr 50 Gm Jar/Tube) 1 appln EXT QD@08 [facility]W Stop: 02/22/25 07:59 Last Admin: 01/23/25 08:46 Dose: 1 appln Sodium Bicarbonate (Sodium Bicarbonate 650 Mg Tab) 1,300 mg PO TID [facility]THEW Stop: 02/20/25 20:59 Last Admin: 01/24/25 10:21 Dose: 1,300 mg Thiamine HCl (Thiamine Hcl 100 Mg Tab) 100 mg PO QAM [facility]W Stop: 02/21/25 08:59 Last Admin: 01/24/25 10:21 Dose: 100 mg
[2025-01-24] MEDS: ACETAMINOPHEN 325 MG TAB PO PRN (14:17)
[2025-01-24] MEDS: ONDANSETRON INJ 2 MG/ML 2 ML VIAL IV PRN (14:17)
--- NOTE | 2025-01-24 21:57 | Podiatry Progress Note ---
Date of Service January 24, 2025 Assessment & Plan (1) Gangrene of toe of left foot: (2) Gangrene of toe of right foot: (3) Cellulitis of left foot: (4) Cellulitis of right foot: (5) Lymphedema: Plan Bilateral lower extremity cellulitis, lymphedema, multiple superficial wounds and early gangrene to the digits. - Arterial ultrasound reviewed:1. Increased velocity monophasic spectral waveforms in bilateral lower limb arteries without any obvious luminal obstruction in the visualised arteries. - Bilateral foot x-rays reviewed without signs of soft tissue emphysema or radiographic findings of osteomyelitis. - Feet are evaluated. One remaining stray maggot is found remaining to the left foot. Overall patient's feet have shown significant improvement over the past 3 days with decreased erythema and edema. New growth of epithelial tissue to superficial wounds to the anterior ankle dorsal foot and toes. Decreased drainage. Decreased odor. Areas of eschar formation to the dorsal aspect of the left second toe and the dorsal medial aspect of the right hallux have begin to contract indicating they may be more superficial in nature. Will have to continue to monitor these areas closely and as the remainder of the foot continues to heal we will likely transition to a Betadine wet-to-dry in the near future to help dry these areas out. - Elevate bilateral lower extremity x 1 pillow while at rest. - Once daily dressing change with Silvadene to the toes and interdigital spaces. Antifungal barrier cream to the foot and leg followed by Donte and lightly applied Vishal bandage to keep dressings in place. Vishal bandage should extend from the toes to the level of the proximal calf. Will continue to monitor patient's progress closely. -Patient okay to weight-bear as needed for short distance and transfer. -Continue empiric IV antibiotics as per hospitalist team. Admission and Anticipated Discharge Date Admission Date: January 21, 2025 Subjective Patient seen resting comfortably in hospital bed. His dressings have recently been changed and he is hesitant to allow me to evaluate the feet as it is quite uncomfortable change dressings. With the assistance of his nurse we are able to remove dressings and evaluate the feet. Continued wound care elevation compression and antibiotics are required. That said patient's feet have made a significant improvement over the past 72 hours. Review of Systems Review of Systems: Denies nausea, vomiting, fever, chills. Reports pain in the bilateral foot and ankle with weightbearing and palpation. Physical Exam Physical Exam: Const: No signs of acute distress present. CV: Extremities: Posterior tibial and dorsalis pedis pulses are palpable bilateral. Skin: See lower extremity exam Neuro: Sensation intact to light touch in all areas of the foot and ankle. Psych: Mood/Affect: Mood is normal. Affect is normal. Cognition: Orientation is intact to person, place and time. Focused lower extremity musculoskeletal exam: Leg: No pain with compression of the calf muscle. Significant reduction in edema to the bilateral lower extremity since the time of admission noted. Left foot: Dry flaking skin from the distal toes to the proximal one third of the leg with multiple areas of superficial skin breakdown weeping serous fluid. Erythema extends from the distal one third of the leg to the toes. Early apparent superficial tissue necrosis to the dorsal toes most notably dorsal second toe. Right foot: Slightly more erythematous than the left with dry flaking skin multiple fissures and superficial ulcerations interdigitally weeping serous fluid. Erythema extends from the distal third of the leg to the toes. Early tissue necrosis to the hallux which seems to be developing rapidly as not seen on photos obtained on admission. Results & Data Results & Data Vital Signs (Past 12 Hours) Vital Signs Temp Pulse Pulse Pulse Resp BP BP 01/24/25 19:48 01/24/25 19:29 36.6 C 83 18 116/65 01/24/25 16:04 88 01/24/25 16:00 96 H 01/24/25 15:49 36.5 C 81 16 120/66 01/24/25 15:02 01/24/25 11:28 36.5 C 88 20 123/62 Pulse Ox O2 Del Method 01/24/25 19:48 Room Air 01/24/25 19:29 96 Room Air 01/24/25 16:04 01/24/25 16:00 01/24/25 15:49 95 Room Air 01/24/25 15:02 Room Air 01/24/25 11:28 96 Room Air Coding Level of Care Code 41628 SUB INP/OBS CARE 2/35MIN Diagnoses Gangrene of toe of left foot I96 Gangrene of toe of right foot I96 Cellulitis of left foot L03.116 Cellulitis of right foot L03.115 Lymphedema I89.0
[2025-01-25 08:10] LABS: Anion Gap 4.0 (3-11); Blood Urea Nitrogen 9.0 mg/dl (6-23); Calcium 7.4 mg/dl (8.6-10.3); Carbon Dioxide 25.0 mmol/L (21-32); Chloride 105.0 mmol/L (98-107); Creatinine Clr Calc Pharmacy 91.1 ml/min; Glucose 92.0 mg/dl (70-99(Fasting)); Magnesium 1.8 mg/dl (1.7-2.4); Potassium 3.6 mmol/L (3.5-5.1); Sodium 134.0 mmol/L (136-145)
--- NOTE | 2025-01-25 15:56 | Hospitalist Progress Note ---
Date of Service January 25, 2025 Assessment & Plan (1) Sepsis: Plan: 64 yo male with unknown past medical history (in these records and [facility] records) presenting after being found down for a lift assist, now being admitted with sepsis from bilateral foot wounds amongst other issues. #Bilateral Foot Wounds-has been seen teacher vocal Dr. Drummond as an outpatient for the last 2 to 3 years as per the patient. Will try to talk to Dr. Drummond on Friday, #Maggot Infestation #Sepsis Presented with burn like bilateral foot wounds with significant maggot infestation Noted to have tachycardia, tachypnea fit SIRS criteria with a source, elevated lactic acid as well Has prior wound culture in [facility] records (1 of only a few labs/records avaliable) that grew MRSA UA suggestive of infection and has been sent for culture and sensitivity and blood cultures have been taken Has been started with intravenous Zosyn and vancomycin Appreciate Ortho and teacher vocal input and recommendation Wound care has been consulted Washout of the wounds with appropriate solutions have been prescribed P as the provider is out of town lastic surgery consultation will be canceled for now as the provider is out of town Awaiting wound care nurse evaluation Clinically better and denies any significant symptoms except minimal pain Continue washout of the wounds as advised with chlorhexidine and water twice daily Arterial duplex was unremarkable for any significant obstruction Will continue current intravenous antibiotic and await further input from wound care and teacher vocal As per the teacher vocal bilateral foot and leg wounds are much betterawaiting pictures to be taken by the wound care nurse Will continue with current intravenous antibiotic with the plan to put on oral down the line on further improvement He has been feeling a lot better and has been accepted to [facility] waiting for further improvement before he can go there Blood cultures have been negative (2) Wound of foot: Plan: As above-bilateral foot x-rays did not show any soft tissue emphysema or radiographic evidence of osteomyelitis. If suspicion persist with further improvement an MRI can be done to exclude osteomyelitis Appreciate teacher vocal input and recommendation (3) Failure to thrive in adult: (4) TATA (acute kidney injury): Plan: #TATA #Metabolic Acidosis w/ Secondary Metabolic Alkalosis Increasing BUN and creatinine likely secondary to dehydration Potassium was elevated at 5.7 this morning likely due to increasing creatinine Received intravenous fluid and also bicarbonate orally Kidney function has been normalized though sodium still remains low at 125 which is likely secondary to dehydration Kidney function remains stable-kidney function remains normal and electrolytes are unremarkable Advised to drink more fluid (5) Hyponatremia: Plan: #Hypovolemic Hyponatremia -unclear type of hyponatremia at this time -patient dry on examination, mucus membranes very dry Plan: -check serum osmoles, urine osmoles, urine sodium -continue NSS resuscitation - Will monitor PRP-sodium level has gone up to 130 Sodium level has gone up to 133 and electrolytes will be replaced accordingly Sodium level has been almost normalized (6) Complicated UTI (urinary tract infection): Plan: UA suggestive of infection and culture has been sent Urine culture has been negative (7) Acute metabolic encephalopathy: Plan: #Metabolic Encephalopathy # Doubt Wernickes Encephalopathy Likely 2/2 alcohol use, malnutrition, sepsis Nystagmus, confusion on exam, tremors, unable to examine ataxia Started on thiamine and folic acid Will observe for any withdrawal symptoms Miner consult, appreciate recs CT head w/o contrast ordered Clinically better no acute symptoms of withdrawal Clinically much better Plan Other significant medical condition as mentioned below: T wave inversion yes Eligibility minus #Type 2 [place] #Inferior T Wave Inversions -noted by slightly elevated HS troponin -likely 2/2 sepsis -ECG with T wave inversions in inferior leads, personally reviewed No evidence of ACS Echo of the heart showed LV wall motion normal, LV systolic function normal, EF was 55 to 60%, grade 1 diastolic dysfunction and there is no significant valvular disease #Elevated AST/ALT Ratio #Alcohol Use -suggestive of active alcohol use -patient states he has not drank alcohol in a few days Plan: -check drug and alcohol levels -AWSS monitoring for alcohol withdrawal with prn ativan, given unclear if withdrawing or not -check ethylene glycol given low bicarb -check VBG -check Hep C, HIV show-hep C has been negative and HIV has been negative #Hyperkalemia-corrected -slightly peaked T waves on ECG Plan: -give lokelma -fluids -recheck BMP #Housing Insecurity -concern for neglect, no running water or electricity -maggots all over body, worst on feet Plan: -will need discussion with case management -PT/OT ordered-recommended rehab Admission and Anticipated Discharge Date Admission Date: January 21, 2025 Subjective 01/22/2025 The patient was seen and examined in medical telemetry unit He complains today of bilateral feet pain and denies any other significant symptoms No fever and/or chills, no nausea and/or vomiting 01/23/2025 The patient was seen and examined in medical telemetry unit He has been stable and complains of minimal pain in the legs and feet No other significant symptoms and does not have any fever and/or chills 01/24/2025 The patient was seen and examined in medical telemetry unit He has been much better today and looks brighter Still has some pain in his lower legs but no fever and or chills Denies any other significant symptoms 01/25/2025 The patient was seen and examined in medical telemetry unit He has been much better and denies any significant symptoms Still has pain in the feet but much improved No fever and chills Review of Systems Review of Systems: All systems reviewed and are unremarkable except as noted below Physical Exam Physical Exam: Lying in bed without any acute distress Constitutional: well developed, well nourished, + ill appearing and + obese Eyes: PERRL, conjunctivae normal, anicteric sclerae ENMT: external ear and nose normal, oropharynx normal Neck: trachea midline, no thyromegaly Respiratory: no respiratory distress Auscultation: lungs clear to auscultation bilaterally Cardiovascular: Rate/Rhythm: regular rate and regular rhythm; not tachycardic Heart Sounds: normal S1 and normal S2; no murmur Extremities: + edema ( lower part of the leg and both the feet are bandaged and the toes looking ) Gastrointestinal (Abdomen): Inspection/Auscultation: normal bowel sounds; abdomen not distended Percussion/Palpation: abdomen soft; abdomen nontender Musculoskeletal: Pain in the feet with movement of the lower extremities Neurologic: normal touch/pain/proprioception and moves all extremities; no focal motor deficits Lymphatic: no cervical or axillary lymphadenopathy Results & Data Results & Data Vital Signs (Past 12 Hours) Vital Signs Temp Pulse Pulse Resp BP Pulse Ox O2 Del Method 01/25/25 15:42 36.7 C 80 18 113/58 L 94 Room Air 01/25/25 13:57 89 01/25/25 08:00 Room Air 01/25/25 07:34 36.8 C 71 18 110/56 L 100 Room Air 01/25/25 07:25 82 Laboratory Results [facility] 01/25/25 06:41 Sodium 134 L Potassium 3.6 Chloride 105 Carbon Dioxide 25 BUN 9 Creatinine 0.82 Glucose 92 Calcium 7.4 L Medications Administered Current Inpatient Medications Acetaminophen (Acetaminophen 325 Mg Tab) 650 mg PO Q4H PRN PRN Reason: pain/fever Stop: 02/20/25 22:15 Last Admin: 01/24/25 14:17 Dose: 650 mg Heparin Sodium (Porcine) (Heparin Sod 5,000 Unit/0.5 Ml Vial) 5,000 units SQ Q8 [facility] Stop: 02/20/25 22:15 Last Admin: 01/25/25 14:52 Dose: 5,000 units Folic Acid 1 mg/ Syringe 10 mls @ 5 mls/min IV QAM [facility] Stop: 02/21/25 08:59 Last Admin: 01/25/25 08:00 Dose: 5 mls/min Vancomycin HCl (Vancomycin Hcl) 1,000 mg in 270 mls @ 200 mls/hr IV Q12H [facility] Stop: 01/31/25 07:59 Last Infusion: 01/25/25 12:46 Dose: Infused Piperacillin Sod/Tazobactam Sod (Zosyn) 4.5 gm in 100 mls @ 25 mls/hr IV Q8H [facility]; Protocol Stop: 01/31/25 08:59 Last Infusion: 01/25/25 12:46 Dose: Infused Lorazepam (Lorazepam 1 Mg Tab) 1 mg PO UD PRN; Protocol PRN Reason: EtOH Withdrawal AWSS Score 6,7 Stop: 02/20/25 19:53 Lorazepam (Lorazepam 1 Mg Tab) 3 mg PO ONCE PRN; Protocol PRN Reason: EtOH Withdrawal AWSS Score 10 & above Lorazepam (Lorazepam 1 Mg Tab) 2 mg PO UD PRN; Protocol PRN Reason: EtOH Withdrawal AWSS Score 8,9 Stop: 02/20/25 19:53 Lorazepam (Lorazepam 2 Mg/1 Ml Vial--Active Protocol) 1 mg IV UD PRN; Protocol PRN Reason: AWSS Score 6,7 Stop: 02/20/25 20:14 Lorazepam (Lorazepam 2 Mg/1 Ml Vial--Active Protocol) 2 mg IV UD PRN; Protocol PRN Reason: AWSS Score 8,9 Stop: 02/20/25 20:14 Lorazepam (Lorazepam 2 Mg/1 Ml Vial--Active Protocol) 3 mg IV ONCE PRN; Protocol PRN Reason: AWSS Score 10+ Stop: 02/20/25 20:14 Miscellaneous Information (Vancomycin Consult Active) 1 each N/A UD PRN PRN Reason: Consult Stop: 02/20/25 18:27 Ondansetron HCl (Ondansetron Inj 2 Mg/Ml 2 Ml Vial) 4 mg IV Q6H PRN PRN Reason: Nausea Stop: 02/20/25 22:15 Last Admin: 01/25/25 14:48 Dose: 4 mg Polyethylene Glycol (Polyethylene (Miralax) 17 Gm Pack) 17 gm PO DAILY PRN PRN Reason: Constipation Stop: 02/20/25 22:15 Potassium Chloride (Potassium Chloride Crtab 20 Meq Tabcr) 20 meq PO BID [facility] Stop: 02/23/25 08:59 Last Admin: 01/25/25 08:00 Dose: 20 meq Silver Sulfadiazine (Silver Sulfadiazine 1% Cr 50 Gm Jar/Tube) 1 appln EXT QD@08 [facility] Stop: 02/22/25 07:59 Last Admin: 01/24/25 15:49 Dose: 1 appln Sodium Bicarbonate (Sodium Bicarbonate 650 Mg Tab) 1,300 mg PO TID [facility] Stop: 02/20/25 20:59 Last Admin: 01/25/25 14:55 Dose: 1,300 mg Thiamine HCl (Thiamine Hcl 100 Mg Tab) 100 mg PO QAM [facility] Stop: 02/21/25 08:59 Last Admin: 01/25/25 08:00 Dose: 100 mg
[2025-01-26] MEDS: MELATONIN 3 MG TAB PO PRN (01:03)
[2025-01-26 04:09] LABS: Creatinine Clr Calc Pharmacy 83.0 ml/min
--- NOTE | 2025-01-26 08:24 | Pharmacy Report ---
Pharmacy PK ABX Note - Date of Service January 26, 2025 - Assessment and Plan Assessment 01/26: Reviewed vancomycin level, predicting therapeutic AUC/BRANDON, continue current vancomycin regimen. 01/24: Reviewed vancomycin level, predicting subtherapeutic AUC/BRANDON likely due to improved serum creatinine, adjust regimen for better probability of goal AUC/BRANDON attainment. Continue Zosyn per Dr. Barrera. 01/21: 64 year old M with unknown PMH presenting after being found down for a lift assist, now admitted with sepsis from bilateral foot wounds. Per H&P, limited prior records for review, however one record did indicate wound culture that grew MRSA. Pertinent microbiologic data includes: 01/21/25 urine culture pending 01/21/25 BC x 2 - pending Vancomycin * Current regimen: 1000 mg IV every 12 hours * Random level obtained 01/26/25 resulted as 13.2 mcg/mL. This is predicted to achieve target AUC/BRANDON of 400-600 mg/L.hr * Predicted AUC at steady state: 431 mg/L.hr * Continue 1000 mg IV every 12 hours * Will repeat level in the next 48-72 hours if therapy is continued and/or change in patient clinical status Pharmacy will continue to follow and will adjust dose/frequency as necessary. Thank you. Pharmacy has transitioned to AUC monitoring for vancomycin. AUC/BRANDON is the preferred PK/PD target and is associated with decreased risk of nephrotoxicity compared to traditional trough targets.
[2025-01-26] MEDS: VANCOMYCIN LEVEL ONE (08:47)
--- NOTE | 2025-01-26 16:51 | Podiatry Progress Note ---
Date of Service January 26, 2025 Assessment & Plan (1) Gangrene of toe of left foot: (2) Gangrene of toe of right foot: (3) Cellulitis of left foot: (4) Cellulitis of right foot: (5) Lymphedema: Plan Bilateral lower extremity cellulitis with multiple superficial wounds and early gangrene to the digits. - Arterial ultrasound reviewed:1. Increased velocity monophasic spectral waveforms in bilateral lower limb arteries without any obvious luminal obstruction in the visualised arteries. - Bilateral foot x-rays reviewed without signs of soft tissue emphysema or radiographic findings of osteomyelitis. - Feet are evaluated. relatively speaking feet have shown significant improvement over the past 5 days. Eschar to the dorsal aspect of the left second toe and dorsal medial aspect of the right hallux appear to be sienna without signs of deep extension. Superficial breakdown in skin to the bilateral foot which is primarily focused at the forefoot and interdigital spaces is starting to epithelialize with decreased serous drainage. Decreased erythema and edema to the feet. - Elevate bilateral lower extremity x 1 pillow while at rest. - Continue once daily dressing change with Silvadene to the toes and interdigital spaces. Antifungal barrier cream to the foot and leg followed by Donte and lightly applied Vishal bandage to keep dressings in place. Vishal bandage should extend from the toes to the level of the proximal calf. Will continue to monitor patient's progress closely. -Patient okay to weight-bear as needed for short distance and transfer. -Continue empiric IV antibiotics as per hospitalist team. Admission and Anticipated Discharge Date Admission Date: January 21, 2025 Subjective Patient seen resting comfortably in hospital bed. Reports decreased pain to the bilateral lower extremity at baseline however continues to have significant pain with dressing changes. Review of Systems Review of Systems: Denies nausea, vomiting, fever, chills. Reports pain in the bilateral foot and ankle with weightbearing and palpation. Physical Exam Physical Exam: Const: No signs of acute distress present. CV: Extremities: Posterior tibial and dorsalis pedis pulses are palpable bilateral. Skin: See lower extremity exam Neuro: Sensation intact to light touch in all areas of the foot and ankle. Psych: Mood/Affect: Mood is normal. Affect is normal. Cognition: Orientation is intact to person, place and time. Focused lower extremity musculoskeletal exam: Leg: No pain with compression of the calf muscle. Significant reduction in edema to the bilateral lower extremity since the time of admission noted. Left foot: Dry flaking skin from the distal toes to the proximal one third of the leg. New epithelial tissue formation over significant portion of the left foot with persistent superficial open wounds to the digital interspaces and forefoot dorsally as well as the anterior ankle. Eschar to the dorsal aspect of the left second toe appears to be relatively superficial and is sienna circumferentially with granular tissue to the borders. Decreased erythema to the left foot. Right foot: Eschar to the dorsal medial aspect of the right hallux has decreased in dimensions slightly and appears to be relatively superficial at this point without fluctuation or underlying drainage. Rapid contracture of the eschar and elevating borders suggest relatively superficial necrosis of skin without evidence of deep extension to the necrotic tissue. Increased epithelial tissue to the dorsum of the foot with resolving wounds throughout. Persistent superficial breakdown in skin to the interdigital spaces with persistent weeping serous fluid. Decreased erythema and edema to the foot. Results & Data Results & Data Vital Signs (Past 12 Hours) Vital Signs Temp Pulse Pulse Resp BP Pulse Ox O2 Del Method 01/26/25 15:52 36.8 C 70 18 117/66 96 Room Air 01/26/25 15:18 78 01/26/25 11:36 36.7 C 53 L 18 106/51 L 96 Room Air 01/26/25 08:00 Room Air 01/26/25 07:51 80 01/26/25 07:36 36.8 C 73 18 105/55 L 94 Room Air Coding Level of Care Code 85189 SUB INP/OBS CARE 07/17MIN Diagnoses Gangrene of toe of left foot I96 Gangrene of toe of right foot I96 Cellulitis of left foot L03.116 Cellulitis of right foot L03.115 Lymphedema I89.0
--- NOTE | 2025-01-26 17:33 | Hospitalist Progress Note ---
Date of Service January 26, 2025 Assessment & Plan (1) Sepsis: Plan: per admitting service notes with addendum: 64 yo male with unknown past medical history (in these records and [facility] records) presenting after being found down for a lift assist, now being admitted with sepsis from bilateral foot wounds amongst other issues. #Bilateral Foot Wounds-has been seen produce team member Dr. Drummond as an outpatient for the last 2 to 3 years as per the patient. Will try to talk to Dr. Drummond on Friday, #Maggot Infestation #Sepsis Presented with burn like bilateral foot wounds with significant maggot infestation Noted to have tachycardia, tachypnea fit SIRS criteria with a source, elevated lactic acid as well Has prior wound culture in [facility] records (1 of only a few labs/records avaliable) that grew MRSA UA suggestive of infection and has been sent for culture and sensitivity and blood cultures have been taken Has been started with intravenous Zosyn and vancomycin Appreciate Ortho and produce team member input and recommendation Wound care has been consulted Washout of the wounds with appropriate solutions have been prescribed P as the provider is out of town lastic surgery consultation will be canceled for now as the provider is out of town Awaiting wound care nurse evaluation Clinically better and denies any significant symptoms except minimal pain Continue washout of the wounds as advised with chlorhexidine and water twice daily Arterial duplex was unremarkable for any significant obstruction Will continue current intravenous antibiotic and await further input from wound care and produce team member As per the produce team member bilateral foot and leg wounds are much betterawaiting pictures to be taken by the wound care nurse Will continue with current intravenous antibiotic with the plan to put on oral down the line on further improvement He has been feeling a lot better and has been accepted to [facility] waiting for further improvement before he can go there Blood cultures have been negative 01/26 on Vanco + Zosyn ID consulted continues daily wound care Podiatry service on board (2) Wound of foot: Plan: As above-bilateral foot x-rays did not show any soft tissue emphysema or radiographic evidence of osteomyelitis. If suspicion persist with further improvement an MRI can be done to exclude osteomyelitis Appreciate produce team member input and recommendation (3) Failure to thrive in adult: (4) TATA (acute kidney injury): Plan: #TATA #Metabolic Acidosis w/ Secondary Metabolic Alkalosis Increasing BUN and creatinine likely secondary to dehydration Potassium was elevated at 5.7 this morning likely due to increasing creatinine Received intravenous fluid and also bicarbonate orally Kidney function has been normalized though sodium still remains low at 125 which is likely secondary to dehydration Kidney function remains stable-kidney function remains normal and electrolytes are unremarkable Advised to drink more fluid crea stable (5) Hyponatremia: Plan: #Hypovolemic Hyponatremia -unclear type of hyponatremia at this time -patient dry on examination, mucus membranes very dry Plan: -check serum osmoles, urine osmoles, urine sodium -continue NSS resuscitation - Will monitor PRP-sodium level has gone up to 130 Sodium level has gone up to 133 and electrolytes will be replaced accordingly Sodium level has been almost normalized repeat Na tomorrow (6) Complicated UTI (urinary tract infection): Plan: UA suggestive of infection and culture has been sent Urine culture has been negative (7) Acute metabolic encephalopathy: Plan: #Metabolic Encephalopathy # Doubt Wernickes Encephalopathy Likely 2/2 alcohol use, malnutrition, sepsis Nystagmus, confusion on exam, tremors, unable to examine ataxia Started on thiamine and folic acid Will observe for any withdrawal symptoms High Density Finishing Operator consult, appreciate recs CT head w/o contrast ordered Clinically better no acute symptoms of withdrawal Clinically much better Plan Other significant medical condition as mentioned below: T wave inversion yes Eligibility minus #Type 2 [place] #Inferior T Wave Inversions -noted by slightly elevated HS troponin -likely 2/2 sepsis -ECG with T wave inversions in inferior leads, personally reviewed No evidence of ACS Echo of the heart showed LV wall motion normal, LV systolic function normal, EF was 55 to 60%, grade 1 diastolic dysfunction and there is no significant valvular disease #Elevated AST/ALT Ratio #Alcohol Use -suggestive of active alcohol use -patient states he has not drank alcohol in a few days Plan: -check drug and alcohol levels -AWSS monitoring for alcohol withdrawal with prn ativan, given unclear if withdrawing or not -check ethylene glycol given low bicarb -check VBG -check Hep C, HIV show-hep C has been negative and HIV has been negative 01/26 repeat liver panel #Hyperkalemia-corrected -slightly peaked T waves on ECG Plan: -give lokelma -fluids -recheck BMP #Housing Insecurity -concern for neglect, no running water or electricity -maggots all over body, worst on feet Plan: -will need discussion with case management -PT/OT ordered-recommended rehab Admission and Anticipated Discharge Date Admission Date: January 21, 2025 Subjective ff up for BL feet wound infection, etc seen resting in bed, comfortable states he feels ok overall has some pain on the BL feet, adequately controlled no other symptoms Review of Systems Review of Systems: all noted and negative except for above Physical Exam Physical Exam: General- oriented x 3, not in distress, speaks in sentences with no effort or accessory muscle use Eyes- anicteric Neck- no JVD Lungs- clear breath sounds bilaterally, no rales/wheezes Heart- normal rate, regular rhythm; no murmurs Abdomen- normal bowel sounds, nondistended, soft, nontender Extremities- no pretibial edema, no calf tenderness BL feet: (+) wounds, seems to be drying up no active discharge Neuro- alert, oriented x 3; no gross focal neurologic deficits Skin- warm & dry Results & Data Results & Data Vital Signs (Past 12 Hours) Vital Signs Temp Pulse Pulse Resp BP Pulse Ox O2 Del Method 01/26/25 15:52 36.8 C 70 18 117/66 96 Room Air 01/26/25 15:18 78 01/26/25 11:36 36.7 C 53 L 18 106/51 L 96 Room Air 01/26/25 08:00 Room Air 01/26/25 07:51 80 01/26/25 07:36 36.8 C 73 18 105/55 L 94 Room Air all noted and reviewed including below
[2025-01-27 04:54] LABS: Hematocrit (blood only) 28.8 % (42.0-52.0); Hemoglobin 9.9 g/dl (14.0-18.0); Immature Granulocytes # (auto) 0.30 K/uL (0.01-0.20); Immature Granulocytes % (auto) 4.1 %; Mean Corpuscular Hemoglobin 34.0 pg (25.0-34.0); Mean Corpuscular Volume 99.0 fL (80.0-100.0); Platelet Count 211 K/uL (130-400); RDW Standard Deviation 47.4 fL (36.4-46.3); Red Blood Count 2.91 M/uL (4.70-6.10); White Blood Count 7.26 K/ul (4.8-10.8)
[2025-01-27 05:08] LABS: Alanine Aminotransferase 35.0 U/L (7-52); Alkaline Phosphatase 81.0 U/L (34-104); Anion Gap 5.0 (3-11); Bilirubin,Total 0.3 mg/dl (0.2-1.0); Blood Urea Nitrogen 10.0 mg/dl (6-23); Calcium 7.4 mg/dl (8.6-10.3); Carbon Dioxide 25.0 mmol/L (21-32); Chloride 104.0 mmol/L (98-107); Creatinine Clr Calc Pharmacy 96.9 ml/min; Glucose 127.0 mg/dl (70-99(Fasting)); Potassium 3.8 mmol/L (3.5-5.1); Sodium 134.0 mmol/L (136-145); Total Protein 5.5 gm/dl (6.0-8.3)
[2025-01-27] MEDS: FOLIC ACID 1 MG TAB PO SCH (08:18)
--- NOTE | 2025-01-27 08:45 | Infectious Disease Consult ---
Date of Service January 27, 2025 Telehealth Information I performed this visit using a real-time telehealth connection between my location and the patients location ([facility]). After connecting through interactive tele-video, patient was identified by name and date of and/or wristband check.Patient (or authorized healthcare bank representative) was informed that this was a telemedicine visit and it was being conducted confidentially over secure lines. My office door was closed and no on e else was present in the room with me.Patient (or authorized healthcare bank representative) provided consent to proceed with the visit, expressed an understanding of privacy and security of the telemedicine visit, and gave permission to have a hospital bank representative in the room in order to assist with the visit and to conduct portions of the visit, as needed. I informed the patient (or authorized healthcare bank representative) that I reviewed their record and presented the opportunity for them to ask any questions regarding the visit today. The patient agreed to participate. bilateral foot wound infection Assessment & Plan (1) Gangrene of toe of left foot: Plan: Discussed with podiatry and they believe the infection is superficial (2) Gangrene of toe of right foot: Plan: Consider MRI to rule out osteomyelitis Plan Discussed with Hospitalist and podiatry and there is apparently no concern for a deep infection and so will hold off on MRI of lower extremities .There is no julianne n for debridement and so no chance of obtaining wound cultures and so I would recommend empiric treatment with augmentin and zvoxx for 2 weeks if no contra- indications .Thank you for allowing us to participate in the care of this patient ID will sign off History of Present Illness History of Present Illness 64 y/o M unknown PMHx who was found down in his trailer where he lives alone and reported 1 week history of increased pain and swelling to the bilateral foot. He was found there by EMS who noted maggots to the feet and legs primarily interdigital spaces. Denies pain to the feet at baseline but he is unable to bear weight due to discomfort with pressure. He was evaluated by podiatry and diagnosed with bilateral lymphedema and gangrene to lower extremities .No surgery is planned as there is no concern for a deep infection and he is currently on zosyn and vancomycin Allergies Allergy/AdvReac Type Severity Reaction Status Date / Time No Known Allergies Allergy Mild Verified 06/18/07 23:57 Home Medications Medication Instructions Recorded Confirmed Type No Known Home Medications 01/21/25 01/21/25 History Patient History Social History Smoking Status: Current some day smoker Tobacco Type: Cigarettes Cigarettes Per Day: 1-2 PPD; Second Hand Exposure: No; Do You Dip or Chew Tobacco: No; Tobacco Cessation Education Requested by Patient: No Hx Alcohol Use: Yes Alcohol type: beer Hx Substance Use: Yes Last Used Substance: Unknown Last Used Substance Other:: pt states uses very infrequently Preferred Language: Czech Communication Ability: Effective Bath Solution Maker Required: No Beliefs That Will Affect Care: None Current Living Situation: Alone Current Living Situation Comment: pt lives in broken down with no running water, electricity Other Information That Helps Us Care for You: No Feels Safe at Home: Yes Safety Concerns: Feels Safe At This Time Assistive Devices: None Review of Systems No respiratory distress ill-looking Physical Exam awake alert oriented Results & Data Vital Signs (Past 12 Hours) Vital Signs Temp Pulse Pulse Resp BP BP Pulse Ox 01/27/25 08:08 36.5 C 74 22 116/79 95 01/27/25 07:23 84 01/27/25 03:12 36.8 C 85 20 113/65 94 01/26/25 22:30 36.7 C 80 18 100/64 98 01/26/25 22:05 82 01/26/25 21:20 O2 Del Method 01/27/25 08:08 Room Air 01/27/25 07:23 01/27/25 03:12 Room Air 01/26/25 22:30 Room Air 01/26/25 22:05 01/26/25 21:20 Room Air Laboratory Results No leukocytosis and blood and urine cultures are NGTD Diagnostic Findings IMPRESSION: 1. Soft tissue swelling noted at the forefoot, especially around the big toe, with no lytic lesions nor signs of osteomyelitis; however, if clinically indicated, MRI is the modality of choice for the detection of early osteomyelitis 2. Plantar calcaneal spur 3. Enthesophyte noted at the site of Achilles tendon insertion 4. Diffuse osteopenia 5. No evidence of acute fracture, dislocation
--- NOTE | 2025-01-27 10:50 | Pharmacy Report ---
Pharmacy PK ABX Note - Date of Service January 27, 2025 - Assessment and Plan Assessment 01/27: AUC/BRANDON now predicted at slightly below goal likely due to decrease in Scr. Given this and plan for MRI to assess for osteo, will increase dose today and obtain a random level tomorrow. 01/26: Reviewed vancomycin level, predicting therapeutic AUC/BRANDON, continue current vancomycin regimen. 01/24: Reviewed vancomycin level, predicting subtherapeutic AUC/BRANDON likely due to improved serum creatinine, adjust regimen for better probability of goal AUC/BRANDON attainment. Continue Zosyn per Dr. Barrera. 01/21: 64 year old M with unknown PMH presenting after being found down for a lift assist, now admitted with sepsis from bilateral foot wounds. Per H&P, limited prior records for review, however one record did indicate wound culture that grew MRSA. Pertinent microbiologic data includes: 01/21/25 urine culture pending 01/21/25 BC x 2 - pending Vancomycin * Current regimen: 1000 mg IV every 12 hours * Predicted AUC at steady state: 397 mg/L.hr * Increase to 1250 mg IV every 12 hours * Random level ordered 01/28 @1230pm. Pharmacy will continue to follow and will adjust dose/frequency as necessary. Thank you. Pharmacy has transitioned to AUC monitoring for vancomycin. AUC/BRANDON is the preferred PK/PD target and is associated with decreased risk of nephrotoxicity compared to traditional trough targets.
--- NOTE | 2025-01-27 15:58 | Podiatry Progress Note ---
Date of Service January 27, 2025 Assessment & Plan (1) Gangrene of toe of left foot: (2) Gangrene of toe of right foot: (3) Cellulitis of left foot: (4) Cellulitis of right foot: (5) Lymphedema: Plan Bilateral lower extremity cellulitis with multiple superficial wounds and early gangrene to the digits. Patient's case discussed with infectious disease and hospitalist teams today. - Arterial ultrasound reviewed:1. Increased velocity monophasic spectral waveforms in bilateral lower limb arteries without any obvious luminal obstruction in the visualised arteries. - Bilateral foot x-rays reviewed without signs of soft tissue emphysema or radiographic findings of osteomyelitis. - Feet are evaluated. relatively speaking feet have shown significant improvement over the past 6 days. Eschar to the dorsal aspect of the left second toe and dorsal medial aspect of the right hallux appear to be sienna without signs of deep extension. Superficial breakdown in skin to the bilateral foot which is primarily focused at the forefoot and interdigital spaces is starting to epithelialize with decreased serous drainage. Decreased erythema and edema to the feet. -Venous stasis ulceration to the bilateral leg continues to decrease in size with rapidly encroaching epithelial tissue and healthy granular wound beds. The biggest issue with patient's leg wounds is the surface area causing patient's significant discomfort with dressing changes. We are going to add Xeroform on top of the Silvadene cream to the dressing order today in hopes to reduce sticking his debridement of slough tissue by way of dressing change has created a healthy granular wound bed. - Elevate bilateral lower extremity x 1 pillow while at rest. - Continue once daily dressing change with Silvadene to the toes and interdigital spaces. Antifungal barrier cream to the foot and leg followed by Donte and lightly applied Vishal bandage to keep dressings in place. Vishal bandage should extend from the toes to the level of the proximal calf. -Patient okay to weight-bear as needed for short distance and transfer. -Continue empiric IV antibiotics as per hospitalist team. Okay to transition to p.o. antibiotics for discharge from podiatry standpoint. In regards to ongoing treatment of bilateral foot and leg wounds and lower extremity soft tissue infection: All wounds are closely evaluated today and there is no deep extension to any of these wounds they remain quite superficial with 1 to 2 mm of depth. Wound beds are primarily healthy granular tissue with rapid formation of new epithelial tissue to many areas of the foot toes and leg. Most concerning areas are the right hallux and left second digit which had formed gangrenous eschar tissue which upon close monitoring appears to be a relatively thin superficial eschar which is contracted since time of admission exposing healthy granular tissue to the wound borders. Treatment lower extremity wounds and local soft tissue infection would be to continue elevation of the bilateral lower extremity, continue daily dressing changes as ordered and close monitoring for any signs of declining wound or infection. Soft tissue culture is not being collected by myself as all wounds are quite superficial and upon presentation were heavily contaminated. No exposed subcutaneous tissue to any wounds at this time. MRI evaluation of the left foot could be considered however I do not believe results would change treatment course at this time. The eschar to the dorsal aspect of the left second toe is sienna rapidly and allowing for creeping epithelialization to the borders. Removal of the eschar would likely put patient at high risk for necrosis of underlying tissues and possible exposure of deep soft tissue or bony structures. Will continue to monitor patient's progress closely while he remains in house. Recommend discharge to assisted facility for ongoing daily dressing changes and to allow him to follow-up on a regular basis to the wound center for reevaluation. Patient is to schedule follow-up in the wound care center within 2 weeks of discharge for reevaluation we will likely follow with him weekly to biweekly at that point until wounds have resolved. Admission and Anticipated Discharge Date Admission Date: January 21, 2025 Subjective Patient seen resting comfortably in hospital. Reports mild pain to the bilateral lower extremity at baseline. Significant pain with dressing changes with large area superficial wounds to the bilateral leg. Denies nausea vomiting fever chills. Review of Systems Review of Systems: Denies nausea, vomiting, fever, chills, chest pain. All other systems reviewed and negative unless detailed above. Physical Exam Physical Exam: Const: No signs of acute distress present. CV: Extremities: Posterior tibial and dorsalis pedis pulses are palpable bilateral. Skin: See lower extremity exam Neuro: Sensation intact to light touch in all areas of the foot and ankle. Psych: Mood/Affect: Mood is normal. Affect is normal. Cognition: Orientation is intact to person, place and time. Focused lower extremity musculoskeletal exam: Leg: No pain with compression of the calf muscle. Venous stasis ulcer right leg with healthy granular wound bed. No signs of local soft tissue infection. Significant pain with palpation. All slough and necrotic tissue has resolved with dressing changes. Large venous stasis ulcer left anterior leg extending laterally to the posterior distal calf. This wound is also quite superficial with healthy granular tissue to the wound bed. Scant serous drainage to dressing with sanguinous drainage upon dressing removal. Significant reduction in edema to the bilateral lower extremity since the time of admission noted. Left foot: Dry flaking skin from the distal toes to the proximal one third of the leg. New epithelial tissue formation over significant portion of the left foot with persistent superficial open wounds to the digital interspaces and forefoot dorsally as well as the anterior ankle. Eschar to the dorsal aspect of the left second toe appears to be relatively superficial and is sienna circumferentially with granular tissue to the borders. Decreased erythema to the left foot. Right foot: Eschar to the dorsal medial aspect of the right hallux has decreased in dimensions slightly and appears to be relatively superficial at this point without fluctuation or underlying drainage. Rapid contracture of the eschar and elevating borders suggest relatively superficial necrosis of skin without evidence of deep extension to the necrotic tissue. Increased epithelial tissue to the dorsum of the foot with resolving wounds throughout. Persistent superficial breakdown in skin to the interdigital spaces with persistent weeping serous fluid. Decreased erythema and edema to the foot. Results & Data Results & Data Vital Signs (Past 12 Hours) Vital Signs Temp Pulse Pulse Resp BP BP Pulse Ox 01/27/25 15:36 36.7 C 71 18 121/62 97 01/27/25 15:06 61 01/27/25 11:19 36.6 C 62 18 116/69 97 01/27/25 08:08 36.5 C 74 22 116/79 95 01/27/25 08:00 01/27/25 07:23 84 O2 Del Method 01/27/25 15:36 Room Air 01/27/25 15:06 01/27/25 11:19 Room Air 01/27/25 08:08 Room Air 01/27/25 08:00 Room Air 01/27/25 07:23 Laboratory Results WBC 7.26 Diagnostic Findings Duplex arterial ultrasound bilateral lower extremity. IMPRESSION: 1. Increased velocity monophasic spectral waveforms in bilateral lower limb aretries without any obvious luminal obstruction in the visualised arteries. Electronically signed by Ino Jenkins 01-22-2025 08:05 AM Coding Level of Care Code 95134 SUB INP/OBS CARE 235MIN Diagnoses Gangrene of toe of left foot I96 Gangrene of toe of right foot I96 Cellulitis of left foot L03.116 Cellulitis of right foot L03.115 Lymphedema I89.0
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
[2025-01-27] MEDS: ADVANCED PROBIOTIC 625 MG CAPSULE PO SCH (18:04)
[2025-01-27] MEDS: VANCOMYCIN HCL 1,250 MG in SODIUM CHLORIDE 0.9% 250 ML IV SCH (18:13)
[2025-01-28 07:16] LABS: Creatinine Clr Calc Pharmacy 92.0 ml/min
[2025-01-28] MEDS: AMOXICILLIN/CLAVULANATE 875 MG TAB PO SCH (16:24)
--- NOTE | 2025-01-28 16:24 | Podiatry Progress Note ---
Date of Service January 28, 2025 Assessment & Plan (1) Gangrene of toe of left foot: (2) Gangrene of toe of right foot: (3) Cellulitis of left foot: (4) Cellulitis of right foot: (5) Lymphedema: Plan Bilateral lower extremity cellulitis with multiple superficial wounds and early gangrene to the digits. Patient's case discussed with infectious disease and hospitalist teams today. - Arterial ultrasound reviewed:1. Increased velocity monophasic spectral waveforms in bilateral lower limb arteries without any obvious luminal obstruction in the visualised arteries. - Bilateral foot x-rays reviewed without signs of soft tissue emphysema or radiographic findings of osteomyelitis. - Feet are evaluated. relatively speaking feet have shown significant improvement over the past 6 days. Eschar to the dorsal aspect of the left second toe and dorsal medial aspect of the right hallux appear to be sienna without signs of deep extension. Superficial breakdown in skin to the bilateral foot which is primarily focused at the forefoot and interdigital spaces is starting to epithelialize with decreased serous drainage. Decreased erythema and edema to the feet. -Venous stasis ulceration to the bilateral leg continues to decrease in size with rapidly encroaching epithelial tissue and healthy granular wound beds. The biggest issue with patient's leg wounds is the surface area causing patient's significant discomfort with dressing changes. We are going to add Xeroform on top of the Silvadene cream to the dressing order today in hopes to reduce sticking his debridement of slough tissue by way of dressing change has created a healthy granular wound bed. - Elevate bilateral lower extremity x 1 pillow while at rest. - Continue once daily dressing change with Silvadene to the toes and interdigital spaces. Antifungal barrier cream to the foot and leg followed by Donte and lightly applied Vishal bandage to keep dressings in place. Vishal bandage should extend from the toes to the level of the proximal calf. -Patient okay to weight-bear as needed for short distance and transfer. -Continue empiric IV antibiotics as per hospitalist team. Okay to transition to p.o. antibiotics for discharge from podiatry standpoint. In regards to ongoing treatment of bilateral foot and leg wounds and lower extremity soft tissue infection: All wounds are closely evaluated today and there is no deep extension to any of these wounds they remain quite superficial with 1 to 2 mm of depth. Wound beds are primarily healthy granular tissue with rapid formation of new epithelial tissue to many areas of the foot toes and leg. Most concerning areas are the right hallux and left second digit which had formed gangrenous eschar tissue which upon close monitoring appears to be a relatively thin superficial eschar which is contracted since time of admission exposing healthy granular tissue to the wound borders. Treatment lower extremity wounds and local soft tissue infection would be to continue elevation of the bilateral lower extremity, continue daily dressing changes as ordered and close monitoring for any signs of declining wound or infection. Soft tissue culture is not being collected by myself as all wounds are quite superficial and upon presentation were heavily contaminated. No exposed subcutaneous tissue to any wounds at this time. MRI evaluation of the left foot could be considered however I do not believe results would change treatment course at this time. The eschar to the dorsal aspect of the left second toe is sienna rapidly and allowing for creeping epithelialization to the borders. Removal of the eschar would likely put patient at high risk for necrosis of underlying tissues and possible exposure of deep soft tissue or bony structures. Will continue to monitor patient's progress closely while he remains in house. Recommend discharge to snf facility for ongoing daily dressing changes and to allow him to follow-up on a regular basis to the wound center for reevaluation. Patient is to schedule follow-up in the wound care center within 2 weeks of discharge for reevaluation we will likely follow with him weekly to biweekly at that point until wounds have resolved. Admission and Anticipated Discharge Date Admission Date: January 21, 2025 Subjective Patient resting comfortably in hospital bed on evaluation today. He is able to tolerate today's dressing changes much better than yesterday with the addition of Xeroform to the wound beds. Patient notes reduction in swelling to his limbs. Wound beds are continuing to improve on a daily basis. Review of Systems Review of Systems: Denies nausea, vomiting, fever, chills, chest pain. All other systems reviewed and negative unless detailed above. Physical Exam Physical Exam: Const: No signs of acute distress present. CV: Extremities: Posterior tibial and dorsalis pedis pulses are palpable bilateral. Skin: See lower extremity exam Neuro: Sensation intact to light touch in all areas of the foot and ankle. Psych: Mood/Affect: Mood is normal. Affect is normal. Cognition: Orientation is intact to person, place and time. Focused lower extremity musculoskeletal exam: Leg: No pain with compression of the calf muscle. Venous stasis ulcer right leg with healthy granular wound bed. No signs of local soft tissue infection. Significant pain with palpation. All slough and necrotic tissue has resolved with dressing changes. Large venous stasis ulcer left anterior leg extending laterally to the posterior distal calf. This wound is also quite superficial with healthy granular tissue to the wound bed. Scant serous drainage to dressing with sanguinous drainage upon dressing removal. Significant reduction in edema to the bilateral lower extremity since the time of admission noted. Left foot: Dry flaking skin from the distal toes to the proximal one third of the leg. New epithelial tissue formation over significant portion of the left foot with persistent superficial open wounds to the digital interspaces and forefoot dorsally as well as the anterior ankle. Eschar to the dorsal aspect of the left second toe appears to be relatively superficial and is sienna circumferentially with granular tissue to the borders. Decreased erythema to the left foot. Right foot: Eschar to the dorsal medial aspect of the right hallux has decreased in dimensions slightly and appears to be relatively superficial at this point without fluctuation or underlying drainage. Rapid contracture of the eschar and elevating borders suggest relatively superficial necrosis of skin without evidence of deep extension to the necrotic tissue. Increased epithelial tissue to the dorsum of the foot with resolving wounds throughout. Persistent superficial breakdown in skin to the interdigital spaces with persistent weeping serous fluid. Decreased erythema and edema to the foot. Results & Data Results & Data Vital Signs (Past 12 Hours) Vital Signs Temp Pulse Pulse Resp BP BP Pulse Ox 01/28/25 15:03 78 01/28/25 11:49 36.6 C 78 19 137/79 95 01/28/25 08:12 36.7 C 85 19 120/72 94 01/28/25 07:41 86 O2 Del Method 01/28/25 15:03 01/28/25 11:49 Room Air 01/28/25 08:12 Room Air 01/28/25 07:41 Coding Level of Care Code 23958 SUB INP/OBS CARE 2/35MIN Diagnoses Gangrene of toe of left foot I96 Gangrene of toe of right foot I96 Cellulitis of left foot L03.116 Cellulitis of right foot L03.115 Lymphedema I89.0
--- NOTE | 2025-01-28 18:16 | Hospitalist Progress Note ---
Date of Service January 28, 2025 Assessment & Plan (1) Sepsis: Plan: per admitting service notes with addendum: 64 yo male with unknown past medical history (in these records and [facility] records) presenting after being found down for a lift assist, now being admitted with sepsis from bilateral foot wounds amongst other issues. #Bilateral Foot Wounds-has been seen center line cutter operator Dr. Drummond as an outpatient for the last 2 to 3 years as per the patient. Will try to talk to Dr. Drummond on Friday, #Maggot Infestation #Sepsis Presented with burn like bilateral foot wounds with significant maggot infestation Noted to have tachycardia, tachypnea fit SIRS criteria with a source, elevated lactic acid as well Has prior wound culture in [facility] records (1 of only a few labs/records avaliable) that grew MRSA UA suggestive of infection and has been sent for culture and sensitivity and blood cultures have been taken Has been started with intravenous Zosyn and vancomycin Appreciate Ortho and center line cutter operator input and recommendation Wound care has been consulted Washout of the wounds with appropriate solutions have been prescribed P as the provider is out of town lastic surgery consultation will be canceled for now as the provider is out of town Awaiting wound care nurse evaluation Clinically better and denies any significant symptoms except minimal pain Continue washout of the wounds as advised with chlorhexidine and water twice daily Arterial duplex was unremarkable for any significant obstruction Will continue current intravenous antibiotic and await further input from wound care and center line cutter operator As per the center line cutter operator bilateral foot and leg wounds are much betterawaiting pictures to be taken by the wound care nurse Will continue with current intravenous antibiotic with the plan to put on oral down the line on further improvement He has been feeling a lot better and has been accepted to [facility] waiting for further improvement before he can go there Blood cultures have been negative 01/26 on Vanco + Zosyn ID consulted continues daily wound care Podiatry service on board 01/27 D[address]ed with podiatry service Dr. Britton Bilateral feet wounds seem to be improving overall He does not feel debridement will be beneficial at this point, also osteomyelitis suspicion is low-does not recommend feet MRI at this point Discussed above with ID service Dr. Chavez- recommending empiric treatment with Augmentin and Zyvox for 2 weeks continue daily wound evaluation as per Dr. Britton 01/28 transitioned to Linezolid + Augmentin as per ID (2) Wound of foot: Plan: As above-bilateral foot x-rays did not show any soft tissue emphysema or radiographic evidence of osteomyelitis. If suspicion persist with further improvement an MRI can be done to exclude osteomyelitis Appreciate center line cutter operator input and recommendation (3) Failure to thrive in adult: (4) TATA (acute kidney injury): Plan: #TATA #Metabolic Acidosis w/ Secondary Metabolic Alkalosis Increasing BUN and creatinine likely secondary to dehydration Potassium was elevated at 5.7 this morning likely due to increasing creatinine Received intravenous fluid and also bicarbonate orally Kidney function has been normalized though sodium still remains low at 125 which is likely secondary to dehydration Kidney function remains stable-kidney function remains normal and electrolytes are unremarkable Advised to drink more fluid crea stable (5) Hyponatremia: Plan: #Hypovolemic Hyponatremia -unclear type of hyponatremia at this time -patient dry on examination, mucus membranes very dry Plan: -check serum osmoles, urine osmoles, urine sodium -continue NSS resuscitation - Will monitor PRP-sodium level has gone up to 130 Sodium level has gone up to 133 and electrolytes will be replaced accordingly Sodium level has been almost normalized repeat Na 134 (6) Complicated UTI (urinary tract infection): Plan: UA suggestive of infection and culture has been sent Urine culture has been negative (7) Acute metabolic encephalopathy: Plan: #Metabolic Encephalopathy # Doubt Wernickes Encephalopathy Likely 2/2 alcohol use, malnutrition, sepsis Nystagmus, confusion on exam, tremors, unable to examine ataxia Started on thiamine and folic acid Will observe for any withdrawal symptoms Livestock Rancher consult, appreciate recs CT head w/o contrast ordered Clinically better no acute symptoms of withdrawal Clinically much better Plan Other significant medical condition as mentioned below: T wave inversion yes Eligibility minus #Type 2 LA #Inferior T Wave Inversions -noted by slightly elevated HS troponin -likely 2/2 sepsis -ECG with T wave inversions in inferior leads, personally reviewed No evidence of ACS Echo of the heart showed LV wall motion normal, LV systolic function normal, EF was 55 to 60%, grade 1 diastolic dysfunction and there is no significant valvular disease #Elevated AST/ALT Ratio #Alcohol Use -suggestive of active alcohol use -patient states he has not drank alcohol in a few days Plan: -check drug and alcohol levels -AWSS monitoring for alcohol withdrawal with prn ativan, given unclear if withdrawing or not -check ethylene glycol given low bicarb -check VBG -check Hep C, HIV show-hep C has been negative and HIV has been negative 01/26 repeat liver panel- normal #Hyperkalemia-corrected -slightly peaked T waves on ECG Plan: -give lokelma -fluids -recheck BMP #Housing Insecurity -concern for neglect, no running water or electricity -maggots all over body, worst on feet Plan: d/c to Acute Rehab when cleared by Podiatry service Admission and Anticipated Discharge Date Admission Date: January 21, 2025 Subjective ff up for BL feet wounds, etc seen resting in bed, not in distress reports cramping pain on the right distal thigh BL feet breading machine tender no other new symptoms Review of Systems Review of Systems: all noted and negative except for above Physical Exam Physical Exam: General- oriented x 3, not in distress, speaks in sentences with no effort or accessory muscle use Eyes- anicteric Neck- no JVD Lungs- clear breath sounds bilaterally, no rales/wheezes Heart- normal rate, regular rhythm; no murmurs Abdomen- normal bowel sounds, nondistended, soft, nontender Extremities- no pretibial edema, no calf tenderness BL feet heavy dressing in place toes: same as yesterday Neuro- alert, oriented x 3; no gross focal neurologic deficits Skin- warm & dry Results & Data Results & Data Vital Signs (Past 12 Hours) Vital Signs Temp Pulse Pulse Resp BP BP Pulse Ox 01/28/25 16:51 36.3 C L 68 20 131/79 95 01/28/25 15:03 78 01/28/25 11:49 36.6 C 78 19 137/79 95 01/28/25 08:12 36.7 C 85 19 120/72 94 01/28/25 07:41 86 O2 Del Method 01/28/25 16:51 Room Air 01/28/25 15:03 01/28/25 11:49 Room Air 01/28/25 08:12 Room Air 01/28/25 07:41 all noted and reviewed including below
[2025-01-28] MEDS: LINEZOLID 600 MG TAB PO SCH (20:19)
[2025-01-29 08:12] VITALS: RESP 16; TEMP 98.4; O2SAT 93
[2025-01-29] MEDS: ACETAMINOPHEN 500 MG TAB PO SCH (13:18)
[2025-01-29 14:05] VITALS: BP 137/79
[2025-01-29 14:58] VITALS: PULSE 87
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
== END 2025-01-29 15:53 | DRG 871 ==
LOC: ED 16:04 → 2W 19:13 → SUATTDRO 19:13 → 2W 22:21